=== PATIENT | male | born 1985 | race Two or more races ===

== ENCOUNTER 2018-03-17 20:39 | Emergency (ER) | payer OTHER ==
[~2018-03-17] VITALS: Ht 172.7 cm; Wt 140.6 kg
[2018-03-17 22:10] LABS: Basophils # (auto) 0.1 uL; Basophils % (auto) 0.9 % (0.0-2.0); Eosinophils # (auto) 0.4 uL; Eosinophils % (auto) 3.5 % (0.0-7.0); Hemoglobin 15.2 g/dL (13.5-17.5); Lymphocytes # (auto) 3.4 uL; Mean Corpuscular Hemoglobin 29.2 pg (28.0-32.0); Mean Corpuscular Hgb Conc. 33.7 g/dL (32.0-36.0); Mean Corpuscular Volume 86.8 fL (80.0-100.0); Monocytes # (auto) 0.7 uL; Monocytes % (auto) 6.2 % (0.0-12.0); Neutrophils # (auto) 7.1 uL; Neutrophils % (auto) 60.4 % (37.0-80.0); Nucleated Red Blood Cells % 0.1 %; Platelet Count (auto) 174 10^3/uL (140-450); Red Blood Cells 5.19 10^6/uL (4.5-5.90); Red Cell Distribution Width 14.3 % (11.8-14.3); White Blood Cell 11.7 10^3/uL (4.4-10.8)
[2018-03-17 22:28] LABS: INR 0.97 (0.9-1.15); Partial Thromboplastin Time 29.9 sec (23.78-33.04); Prothrombin Time 10.4 sec (9.27-12.13)
[2018-03-17 22:29] LABS: Alanine Aminotransferase 82 U/L (16-61); Albumin 3.3 g/dL (3.4-5.0); Anion Gap 10 (5-15); Aspartate Aminotransferase 38 U/L (15-37); BUN/Creatinine Ratio 14.7; Blood Urea Nitrogen 15 mg/dL (7-18); Calcium 8.6 mg/dL (8.5-10.1); Carbon Dioxide 25 mmol/L (21-32); Chloride 105 mmol/L (98-107); GFR African American 110 mL/min; GFR Non-African American 91 mL/min; Glucose 99 mg/dL (74-106); Magnesium 2.2 mg/dL (1.6-2.6); Potassium 4.1 mmol/L (3.5-5.1); Sodium 140 mmol/L (136-145)
[2018-03-17 22:34] LABS: Alkaline Phosphatase 114 U/L (45-117); Bilirubin, Total 0.3 mg/dL (0.2-1.0); Total Protein 8.1 g/dL (6.4-8.2)
[2018-03-18 02:30] VITALS: BP 121/68
== END 2018-03-18 03:08 | disposition home or self-care (01) ==
LOC: ER 20:47
DX: M79.605 Pain in left leg (principal)
CPT/HCPCS: 36415; 71046; 80053; 83735; 84484; 85025; 85379; 85610; 85730; 93005; 93971

== ENCOUNTER 2023-01-06 17:41 | Inpatient (IN) | payer OTHER, MEDICAID ==
[~2023-01-06] VITALS: Ht 175.3 cm; Wt 118.3 kg
[2023-01-06] MEDS ORDERED: HYDROcodone-ACET 10/325MG TAB PO ONE (18:30)
[2023-01-06] MEDS ORDERED: ONDANSETRON ODT 4 MG TAB PO ONE (18:30)
[2023-01-06 18:59] LABS: Basophils # (auto) 0 10 ^3/uL (0-0.2); Basophils % (auto) 0.4 % (0.0-2.0); Eosinophils # (auto) 0.2 10 ^3/uL (0-0.8); Eosinophils % (auto) 1.5 % (0.0-7.0); Hematocrit 46.4 % (41.0-53.0); Hemoglobin 15.9 g/dL (13.5-17.5); Lymphocytes # (auto) 2.1 10 ^3/uL (0.4-5.4); Lymphocytes % (auto) 19.6 % (10.0-50.0); Mean Corpuscular Hemoglobin 30.1 pg (28.0-32.0); Mean Corpuscular Hgb Conc. 34.2 g/dL (32.0-36.0); Mean Corpuscular Volume 88.1 fL (80.0-100.0); Monocytes # (auto) 0.5 10 ^3/uL (0-1.3); Monocytes % (auto) 4.3 % (0.0-12.0); Neutrophils % (auto) 74.2 % (37.0-80.0); Nucleated Red Blood Cells % 0.2 %; Red Blood Cells 5.27 10^6/uL (4.5-5.90); Red Cell Distribution Width 13.5 % (11.8-14.3); White Blood Cell 10.8 10^3/uL (4.4-10.8)
[2023-01-06 19:18] LABS: Albumin 3.4 g/dL (3.4-5.0); Calcium 8.5 mg/dL (8.5-10.1); Magnesium 1.9 mg/dL (1.6-2.6); Potassium 4.1 mmol/L (3.5-5.1)
[2023-01-06 19:20] LABS: Bilirubin, Total 0.3 mg/dL (0.2-1.0); Total Protein 8.1 g/dL (6.4-8.2)
[2023-01-06 22:20] LABS: Urine WBC None Seen /hpf (0 - 3)
[2023-01-06 22:41] LABS: Urine Bacteria FEW /hpf (None Seen); Urine Blood Negative /uL (Negative); Urine Mucus FEW (None Seen); Urine Specific Gravity 1.034 (1.001-1.035)
[2023-01-06] MEDS ORDERED: HYDROmorphone HCL 2 MG/ML VL/or syr IM ONE (23:30)
[2023-01-07] MEDS ORDERED: MORPHINE SULFATE INJ 2 MG/ml SYRG IV PRN ×2 (00:15→01:45)
[2023-01-07] MEDS ORDERED: IBUPROFEN 600 MG TAB PO PRN (00:15)
[2023-01-07] MEDS ORDERED: NITROGLYCERIN 0.4 MG SL TAB SL PRN ×2 (00:15→01:45)
[2023-01-07] MEDS: SODIUM CHLORIDE 0.9% 1,000 ML IV SCH ×2 (01:19→16:32)
[2023-01-07] MEDS: HYDROmorphone HCL 2 MG/ML VL/or syr IV PRN ×4 (03:37→21:09)
[2023-01-07 06:44] LABS: Albumin 3.6 g/dL (3.4-5.0); BUN/Creatinine Ratio 16.3 (10.0-20.0); Bilirubin, Total 0.5 mg/dL (0.2-1.0); Calcium 8.7 mg/dL (8.5-10.1); Potassium 3.8 mmol/L (3.5-5.1); Total Protein 7.8 g/dL (6.4-8.2)
[2023-01-07 07:02] LABS: Basophils # (auto) 0.1 10 ^3/uL (0-0.2); Basophils % (auto) 0.8 % (0.0-2.0); Eosinophils # (auto) 0.2 10 ^3/uL (0-0.8); Eosinophils % (auto) 2.1 % (0.0-7.0); Hematocrit 42.1 % (41.0-53.0); Hemoglobin 14.3 g/dL (13.5-17.5); Lymphocytes # (auto) 3.5 10 ^3/uL (0.4-5.4); Lymphocytes % (auto) 39.2 % (10.0-50.0); Mean Corpuscular Volume 88.4 fL (80.0-100.0); Monocytes # (auto) 0.5 10 ^3/uL (0-1.3); Monocytes % (auto) 5.7 % (0.0-12.0); Neutrophils # (auto) 4.6 10 ^3/uL (1.6-8.6); Neutrophils % (auto) 52.2 % (37.0-80.0); Nucleated Red Blood Cells % 0.1 %; Red Blood Cells 4.77 10^6/uL (4.5-5.90); Red Cell Distribution Width 13.5 % (11.8-14.3); White Blood Cell 8.9 10^3/uL (4.4-10.8)
[2023-01-07] MEDS: ONDANSETRON HCL 4 MG/2 ML VIAL IV PRN ×3 (09:31→21:09)
[2023-01-07 22:30] VITALS: BP 123/67
[2023-01-08] VITALS: BP 123/67
[2023-01-08 05:00] VITALS: BP 136/73
[2023-01-08] MEDS: HYDROmorphone HCL 2 MG/ML VL/or syr IV PRN ×3 (06:32→21:58)
[2023-01-08 06:42] LABS: Albumin 3.2 g/dL (3.4-5.0); Calcium 8.6 mg/dL (8.5-10.1)
[2023-01-08 06:45] LABS: BUN/Creatinine Ratio 13.3 (10.0-20.0)
[2023-01-08 06:46] LABS: Bilirubin, Total 0.7 mg/dL (0.2-1.0); Total Protein 7.5 g/dL (6.4-8.2)
[2023-01-08 06:50] LABS: Basophils # (auto) 0 10 ^3/uL (0-0.2); Basophils % (auto) 0.5 % (0.0-2.0); Eosinophils # (auto) 0.1 10 ^3/uL (0-0.8); Eosinophils % (auto) 1.7 % (0.0-7.0); Hemoglobin 15.1 g/dL (13.5-17.5); Lymphocytes # (auto) 2.7 10 ^3/uL (0.4-5.4); Lymphocytes % (auto) 31.5 % (10.0-50.0); Mean Corpuscular Hemoglobin 30.2 pg (28.0-32.0); Mean Corpuscular Hgb Conc. 34.3 g/dL (32.0-36.0); Mean Corpuscular Volume 88.2 fL (80.0-100.0); Monocytes # (auto) 0.5 10 ^3/uL (0-1.3); Monocytes % (auto) 6.1 % (0.0-12.0); Neutrophils # (auto) 5.2 10 ^3/uL (1.6-8.6); Neutrophils % (auto) 60.2 % (37.0-80.0); Nucleated Red Blood Cells % 0.3 %; Red Blood Cells 4.98 10^6/uL (4.5-5.90); Red Cell Distribution Width 13.4 % (11.8-14.3); White Blood Cell 8.6 10^3/uL (4.4-10.8)
[2023-01-08 08:00] VITALS: BP 126/77
[2023-01-08] MEDS: SODIUM CHLORIDE 0.9% 1,000 ML IV SCH (09:04)
[2023-01-08] MEDS: PANTOPRAZOLE 40 MG/10 ML VIAL INJ IV SCH (09:04)
[2023-01-08] MEDS: cefTRIAXone 1GM/50ML D5W 50 ML IV SCH (09:04)
[2023-01-08] MEDS: HYDROcodone-ACET 5/325MG TAB PO PRN ×2 (09:13→17:35)
[2023-01-08 12:00] VITALS: BP 107/65
[2023-01-08 16:00] VITALS: BP 113/75
[2023-01-08 22:00] VITALS: BP_SYST 111; BP_SYST 93; BP_DIAS 59; BP_DIAS 80
[2023-01-09] VITALS: BP 133/62
[2023-01-09] MEDS: HYDROmorphone HCL 2 MG/ML VL/or syr IV PRN ×2 (02:11→09:27)
[2023-01-09] MEDS: SODIUM CHLORIDE 0.9% 1,000 ML IV SCH (02:15)
[2023-01-09 05:00] VITALS: BP 113/76
[2023-01-09 09:00] VITALS: BP 118/71
[2023-01-09] MEDS: cefTRIAXone 1GM/50ML D5W 50 ML IV SCH (09:26)
[2023-01-09] MEDS: ONDANSETRON HCL 4 MG/2 ML VIAL IV PRN (09:26)
[2023-01-09] MEDS: PANTOPRAZOLE 40 MG/10 ML VIAL INJ IV SCH (09:26)
[2023-01-09] MEDS ORDERED: MET500T PO (12:18)
[2023-01-09] MEDS ORDERED: ZOFR4T PO (12:18)
[2023-01-09] MEDS ORDERED: CIPR-173 PO (12:18)
[2023-01-09] MEDS ORDERED: HYDR-4902 PO (12:18)
[2023-01-09 12:51] VITALS: BP 143/55
[2023-01-09 13:00] VITALS: BP 115/71
[2023-01-10 08:49] LABS: Hepatitis B Surface Antibody Negative (Negative)
[2023-01-10 09:20] LABS: Hepatitis A Total Antibody Positive (Negative)
[2023-01-10 09:48] LABS: Hepatitis C Antibody Negative (Negative)
== END 2023-01-09 13:25 | disposition home or self-care (01) | DRG 392 ==
LOC: ER 17:41 → UNDOADMIN 01-07 01:35 → OVERFLOW 01-07 01:35 → TELE-CENTR 01-07 21:52
PROVIDERS: ADMIT Nurse Practitioner Family; ATTEND Internal Medicine
DX: K57.92 Diverticulitis of intestine, part unspecified, without perforation or abscess without bleeding (principal); R00.1 Bradycardia, unspecified; R79.89 Other specified abnormal findings of blood chemistry; E66.01 Morbid (severe) obesity due to excess calories; K44.9 Diaphragmatic hernia without obstruction or gangrene; Z68.38 Body mass index [BMI] 38.0-38.9, adult
CPT/HCPCS: 36415; 74176; 76705; 80053; 81001; 82728; 83605; 83690; 83735; 84484; 85025; 86038; 86704; 86706; 86708; 86803; 87340; 96372; C9113; G0378; J0696; J2405

== ENCOUNTER 2023-01-17 08:21 | Emergency (ER) | payer OTHER, MEDICAID ==
[~2023-01-17] VITALS: Ht 175.3 cm; Wt 116.0 kg
[~2023-01-17 08:21] MED LIST: CIPR-173 PO; HYDR-4902 PO; MET500T PO; ZOFR4T PO
[2023-01-17] MEDS ORDERED: ONDANSETRON HCL 4 MG/2 ML VIAL IV ONE (08:45)
[2023-01-17] MEDS ORDERED: PANTOPRAZOLE 40 MG/10 ML VIAL INJ IV ONE (08:45)
[2023-01-17] MEDS ORDERED: SODIUM CHLORIDE 0.9% 1,000 ML IVB ONE (08:45)
[2023-01-17 08:58] LABS: Basophils # (auto) 0.1 10 ^3/uL (0-0.2); Basophils % (auto) 0.6 % (0.0-2.0); Eosinophils # (auto) 0.1 10 ^3/uL (0-0.8); Eosinophils % (auto) 1.4 % (0.0-7.0); Hematocrit 45.4 % (41.0-53.0); Hemoglobin 15.3 g/dL (13.5-17.5); Lymphocytes # (auto) 2.7 10 ^3/uL (0.4-5.4); Lymphocytes % (auto) 27.8 % (10.0-50.0); Mean Corpuscular Hemoglobin 29.9 pg (28.0-32.0); Mean Corpuscular Hgb Conc. 33.8 g/dL (32.0-36.0); Mean Corpuscular Volume 88.6 fL (80.0-100.0); Monocytes # (auto) 0.6 10 ^3/uL (0-1.3); Monocytes % (auto) 5.6 % (0.0-12.0); Neutrophils # (auto) 6.3 10 ^3/uL (1.6-8.6); Neutrophils % (auto) 64.6 % (37.0-80.0); Nucleated Red Blood Cells % 0.2 %; Red Blood Cells 5.12 10^6/uL (4.5-5.90); Red Cell Distribution Width 13.8 % (11.8-14.3); White Blood Cell 9.8 10^3/uL (4.4-10.8)
[2023-01-17 09:18] LABS: Albumin 3.4 g/dL (3.4-5.0); Calcium 8.7 mg/dL (8.5-10.1); Potassium 3.8 mmol/L (3.5-5.1)
[2023-01-17 09:22] LABS: BUN/Creatinine Ratio 12.9 (10.0-20.0); Bilirubin, Total 0.6 mg/dL (0.2-1.0); Total Protein 8.1 g/dL (6.4-8.2)
[2023-01-17 10:49] LABS: Urine Bacteria NONE SEEN /hpf (None Seen); Urine Blood Negative /uL (Negative); Urine Mucus FEW (None Seen); Urine Specific Gravity 1.029 (1.001-1.035); Urine WBC 1 /hpf (0 - 3)
[2023-01-17] MEDS ORDERED: METR375C PO (12:06)
[2023-01-17 12:57] VITALS: BP 114/75
== END 2023-01-17 13:58 | disposition home or self-care (01) ==
LOC: ER 08:21
DX: K52.9 Noninfective gastroenteritis and colitis, unspecified (principal); R10.30 Lower abdominal pain, unspecified; Z79.899 Other long term (current) drug therapy
CPT/HCPCS: 36415; 74176; 80053; 81001; 83690; 85025; 96361; 96374; 96375; 99285; C9113; J2405; J7030

== ENCOUNTER 2023-01-22 08:56 | Emergency (ER) | payer OTHER, MEDICAID ==
[~2023-01-22] VITALS: Ht 172.7 cm; Wt 117.8 kg
[2023-01-22 08:56] VITALS: BP 139/76
[~2023-01-22 08:56] MED LIST changes: +METR375C PO
[2023-01-22] MEDS ORDERED: KETOROLAC TROMETH 60MG/2ML VIAL IM ONE (10:30)
[2023-01-22] MEDS ORDERED: METH-1182 PO (10:33)
[2023-01-22] MEDS ORDERED: IBUP-1456 PO (10:33)
== END 2023-01-22 10:54 | disposition home or self-care (01) ==
LOC: ER 08:56
DX: S46.911A Strain of unspecified muscle, fascia and tendon at shoulder and upper arm level, right arm, initial encounter (principal); S29.011A Strain of muscle and tendon of front wall of thorax, initial encounter; Z79.1 Long term (current) use of non-steroidal anti-inflammatories (NSAID); Z79.2 Long term (current) use of antibiotics; Z79.899 Other long term (current) drug therapy; V43.52XA Car driver injured in collision with other type car in traffic accident, initial encounter; Y93.89 Activity, other specified; Y92.410 Unspecified street and highway as the place of occurrence of the external cause; Y99.8 Other external cause status
CPT/HCPCS: 71046; 73030; 96372; 99284; J1885

== ENCOUNTER 2023-02-09 01:51 | Emergency (ER) | payer OTHER, MEDICAID ==
[~2023-02-09] VITALS: Ht 177.8 cm; Wt 118.2 kg
[~2023-02-09 01:51] MED LIST changes: +IBUP-1456 PO; +METH-1182 PO
[2023-02-09 02:10] VITALS: BP 128/77; PULSE 62; RESP 18; TEMP 97.9; O2SAT 98
[2023-02-09] MEDS ORDERED: CYCL-837 PO (05:11)
[2023-02-09] MEDS ORDERED: TRAM50TA2 PO (05:11)
[2023-02-09] MEDS ORDERED: KETOROLAC TROMETH 60MG/2ML VIAL IM ONE (05:15)
[2023-02-10] MEDS ORDERED: ZOFR4T PO (10:24)
== END 2023-02-09 07:07 | disposition home or self-care (01) ==
LOC: ER 01:51
DX: S46.911A Strain of unspecified muscle, fascia and tendon at shoulder and upper arm level, right arm, initial encounter (principal); S23.41XA Sprain of ribs, initial encounter; Z79.1 Long term (current) use of non-steroidal anti-inflammatories (NSAID); Z79.899 Other long term (current) drug therapy; W01.198A Fall on same level from slipping, tripping and stumbling with subsequent striking against other object, initial encounter; Y93.89 Activity, other specified; Y92.89 Other specified places as the place of occurrence of the external cause; Y99.8 Other external cause status
CPT/HCPCS: 71045; 73030; 96372; 99284; J1885

== ENCOUNTER 2023-02-10 08:33 | Emergency (ER) | payer OTHER, MEDICAID ==
[~2023-02-10] VITALS: Ht 177.8 cm; Wt 115.8 kg
[~2023-02-10 08:33] MED LIST changes: +CYCL-837 PO; +TRAM50TA2 PO
[2023-02-10] MEDS ORDERED: SODIUM CHLORIDE 0.9% 1,000 ML IVB ONE (08:45)
[2023-02-10] MEDS ORDERED: MORPHINE SULFATE 4 MG/ML SYR/VIAL IV ONE (08:45)
[2023-02-10] MEDS ORDERED: PANTOPRAZOLE 40 MG/10 ML VIAL INJ IV ONE (08:45)
[2023-02-10] MEDS ORDERED: PROCHLORPERAZINE EDISYLATE 5 MG/ML 2ML VIAL IV ONE (08:45)
[2023-02-10 09:16] LABS: Basophils # (auto) 0 10 ^3/uL (0-0.2); Basophils % (auto) 0.5 % (0.0-2.0); Eosinophils # (auto) 0.1 10 ^3/uL (0-0.8); Eosinophils % (auto) 1.3 % (0.0-7.0); Hemoglobin 14.8 g/dL (13.5-17.5); Lymphocytes # (auto) 2.4 10 ^3/uL (0.4-5.4); Lymphocytes % (auto) 28.9 % (10.0-50.0); Mean Corpuscular Hgb Conc. 33.7 g/dL (32.0-36.0); Monocytes # (auto) 0.3 10 ^3/uL (0-1.3); Monocytes % (auto) 4.1 % (0.0-12.0); Neutrophils # (auto) 5.4 10 ^3/uL (1.6-8.6); Neutrophils % (auto) 65.2 % (37.0-80.0); Nucleated Red Blood Cells % 0.1 %; Red Blood Cells 4.94 10^6/uL (4.5-5.90); Red Cell Distribution Width 13.6 % (11.8-14.3); White Blood Cell 8.3 10^3/uL (4.4-10.8)
[2023-02-10 09:31] LABS: Albumin 3.4 g/dL (3.4-5.0); Calcium 8.6 mg/dL (8.5-10.1); Magnesium 2.5 mg/dL (1.6-2.6); Potassium 3.8 mmol/L (3.5-5.1)
[2023-02-10 09:34] LABS: BUN/Creatinine Ratio 17.5 (10.0-20.0); Bilirubin, Total 0.2 mg/dL (0.2-1.0); Total Protein 7.4 g/dL (6.4-8.2)
[2023-02-10] MEDS ORDERED: MORPHINE SULFATE 4 MG/ML SYR/VIAL IM ONE (09:45)
[2023-02-10] MEDS ORDERED: ZOFR4T PO (10:24)
[2023-02-10 10:39] VITALS: BP 144/89; PULSE 61; RESP 19; TEMP 98; O2SAT 99
[2023-02-10 10:43] LABS: Urine Bacteria NONE SEEN /hpf (None Seen); Urine Blood Negative /uL (Negative); Urine Mucus FEW (None Seen); Urine WBC 1 /hpf (0 - 3)
== END 2023-02-10 10:41 | disposition home or self-care (01) ==
LOC: ER 08:33
DX: R10.9 Unspecified abdominal pain (principal); R11.0 Nausea; Z79.1 Long term (current) use of non-steroidal anti-inflammatories (NSAID); Z79.899 Other long term (current) drug therapy
CPT/HCPCS: 36415; 74176; 80053; 81001; 83690; 83735; 85025; 96361; 96372; 96374; 96375; 99285; C9113; J0780; J2270; J7030

== ENCOUNTER 2023-02-19 23:52 | Inpatient (IN) | payer OTHER, MEDICAID ==
[~2023-02-19] VITALS: Ht 180.3 cm; Wt 116.7 kg
[2023-02-20] MEDS ORDERED: ONDANSETRON ODT 4 MG TAB PO ONE (00:30)
[2023-02-20] MEDS ORDERED: traMADol HCL 50 MG TAB PO ONE (00:30)
[2023-02-20 00:34] LABS: Basophils # (auto) 0 10 ^3/uL (0-0.2); Basophils % (auto) 0.2 % (0.0-2.0); Eosinophils # (auto) 0.1 10 ^3/uL (0-0.8); Eosinophils % (auto) 0.6 % (0.0-7.0); Hematocrit 46.1 % (41.0-53.0); Hemoglobin 15.3 g/dL (13.5-17.5); Lymphocytes # (auto) 0.9 10 ^3/uL (0.4-5.4); Mean Corpuscular Hemoglobin 29.9 pg (28.0-32.0); Mean Corpuscular Hgb Conc. 33.2 g/dL (32.0-36.0); Mean Corpuscular Volume 90.1 fL (80.0-100.0); Monocytes # (auto) 0.3 10 ^3/uL (0-1.3); Monocytes % (auto) 3.4 % (0.0-12.0); Neutrophils # (auto) 8.7 10 ^3/uL (1.6-8.6); Neutrophils % (auto) 86.8 % (37.0-80.0); Red Blood Cells 5.11 10^6/uL (4.5-5.90); Red Cell Distribution Width 14.3 % (11.8-14.3); White Blood Cell 10.1 10^3/uL (4.4-10.8)
[2023-02-20 00:47] LABS: Albumin 3.3 g/dL (3.4-5.0); Calcium 8.2 mg/dL (8.5-10.1); Potassium 3.7 mmol/L (3.5-5.1)
[2023-02-20 00:50] LABS: Total Protein 7.5 g/dL (6.4-8.2)
[2023-02-20 00:56] LABS: Bilirubin, Total 0.4 mg/dL (0.2-1.0)
[2023-02-20 01:10] LABS: BUN/Creatinine Ratio 12.5 (10.0-20.0)
[2023-02-20] MEDS ORDERED: SODIUM CHLORIDE 0.9% 1,000 ML IV ONE (02:00)
[2023-02-20 02:58] LABS: Urine Bacteria NONE SEEN /hpf (None Seen); Urine Mucus FEW (None Seen); Urine WBC 1 /hpf (0 - 3)
[2023-02-20 03:01] LABS: Urine Clarity CLEAR (Clear); Urine Color Yellow (Yellow); Urine Specific Gravity 1.025 (1.001-1.035)
[2023-02-20 03:02] LABS: Urine Blood Negative /uL (Negative); Urine Protein, UAD TRACE (Negative); Urine Urobilinogen Normal (Negative)
[2023-02-20 04:00] VITALS: PULSE 75; RESP 24; O2SAT 95
[2023-02-20] MEDS ORDERED: DOCUSATE SOD 100 MG CAP PO PRN (05:00)
[2023-02-20] MEDS ORDERED: IBUPROFEN 600 MG TAB PO PRN (05:00)
[2023-02-20] MEDS ORDERED: MORPHINE SULFATE INJ 2 MG/ml SYRG IV PRN ×2 (05:00→06:15)
[2023-02-20 05:29] LABS: Basophils # (auto) 0 10 ^3/uL (0-0.2); Basophils % (auto) 0.3 % (0.0-2.0); Eosinophils # (auto) 0.1 10 ^3/uL (0-0.8); Eosinophils % (auto) 0.6 % (0.0-7.0); Hematocrit 44.3 % (41.0-53.0); Hemoglobin 14.9 g/dL (13.5-17.5); Lymphocytes # (auto) 1.2 10 ^3/uL (0.4-5.4); Lymphocytes % (auto) 12.6 % (10.0-50.0); Mean Corpuscular Hemoglobin 30.2 pg (28.0-32.0); Mean Corpuscular Hgb Conc. 33.6 g/dL (32.0-36.0); Mean Corpuscular Volume 89.7 fL (80.0-100.0); Monocytes # (auto) 0.5 10 ^3/uL (0-1.3); Monocytes % (auto) 4.9 % (0.0-12.0); Neutrophils # (auto) 7.7 10 ^3/uL (1.6-8.6); Neutrophils % (auto) 81.6 % (37.0-80.0); Red Blood Cells 4.94 10^6/uL (4.5-5.90); Red Cell Distribution Width 14.4 % (11.8-14.3); White Blood Cell 9.4 10^3/uL (4.4-10.8)
[2023-02-20 05:48] LABS: Albumin 3.4 g/dL (3.4-5.0); Calcium 8.2 mg/dL (8.5-10.1); Potassium 3.6 mmol/L (3.5-5.1)
[2023-02-20 05:51] LABS: BUN/Creatinine Ratio 15.7 (10.0-20.0)
[2023-02-20 05:54] LABS: Bilirubin, Total 0.5 mg/dL (0.2-1.0); Total Protein 7.6 g/dL (6.4-8.2)
[2023-02-20] MEDS ORDERED: NITROGLYCERIN 0.4 MG SL TAB SL PRN (06:15)
[2023-02-20 08:00] VITALS: PULSE 70; RESP 25; O2SAT 95
[2023-02-20] MEDS: SODIUM CHLORIDE 0.9% 1,000 ML IV SCH ×2 (08:00→23:11)
[2023-02-20] MEDS: ONDANSETRON HCL 4 MG/2 ML VIAL IV PRN ×4 (08:38→22:45)
[2023-02-20 11:34] LABS: Cholesterol 178 mg/dL (< 200)
[2023-02-20 11:37] LABS: HDL Cholesterol 65 mg/dL (40-59); LDL Cholesterol 99 mg/dL (< 100); Triglycerides 98 mg/dL (< 150)
[2023-02-20] MEDS: HYDROcodone-ACET 5/325MG TAB PO PRN (12:03)
[2023-02-20] MEDS ORDERED: HYDROmorphone HCL 2 MG/ML VL/or syr IV PRN (12:45)
[2023-02-20] MEDS ORDERED: cefTRIAXone 1GM/50ML D5W 50 ML IV ONE (13:00)
[2023-02-20 13:26] LABS: Alcohol, Urine < 3.0 mg/dL (0-10); Amphetamine Screen, Urine NEGATIVE (NEGATIVE); Barbiturate Scree,Urine NEGATIVE (NEGATIVE); Benzodiazephine Screen, Urine NEGATIVE (NEGATIVE); Cannabinoid Screen, Urine POSITIVE (NEGATIVE); Cocaine Screen, Urine NEGATIVE (NEGATIVE)
[2023-02-20 13:33] LABS: Opiate Scree,Urine NEGATIVE (NEGATIVE); Phencyclidine Screen, Urine NEGATIVE (NEGATIVE)
[2023-02-20] MEDS: HYDROmorphone HCL 2 MG/ML VL/or syr IV PRN ×3 (13:45→22:44)
[2023-02-20] MEDS: metroNIDAZOLE 500MG/100ML 100 ML IV SCH ×2 (15:19→22:40)
[2023-02-20] MEDS: FLORASTOR (S. BOULARDII) 250 MG CAP PO SCH (23:08)
[2023-02-21 05:00] LABS: Basophils # (auto) 0 10 ^3/uL (0-0.2); Basophils % (auto) 0.4 % (0.0-2.0); Eosinophils # (auto) 0.1 10 ^3/uL (0-0.8); Eosinophils % (auto) 2.1 % (0.0-7.0); Hematocrit 45.2 % (41.0-53.0); Hemoglobin 15.1 g/dL (13.5-17.5); Lymphocytes # (auto) 1.5 10 ^3/uL (0.4-5.4); Lymphocytes % (auto) 23.3 % (10.0-50.0); Mean Corpuscular Hemoglobin 30.1 pg (28.0-32.0); Mean Corpuscular Hgb Conc. 33.3 g/dL (32.0-36.0); Mean Corpuscular Volume 90.5 fL (80.0-100.0); Monocytes # (auto) 0.6 10 ^3/uL (0-1.3); Monocytes % (auto) 9.5 % (0.0-12.0); Neutrophils # (auto) 4.3 10 ^3/uL (1.6-8.6); Neutrophils % (auto) 64.7 % (37.0-80.0); Nucleated Red Blood Cells % 0.1 %; Red Cell Distribution Width 14.2 % (11.8-14.3); White Blood Cell 6.6 10^3/uL (4.4-10.8)
[2023-02-21 05:17] LABS: Calcium 8.1 mg/dL (8.5-10.1); Potassium 4.2 mmol/L (3.5-5.1)
[2023-02-21 05:20] LABS: BUN/Creatinine Ratio 12.2 (10.0-20.0); Bilirubin, Total 0.5 mg/dL (0.2-1.0); Total Protein 7.1 g/dL (6.4-8.2)
[2023-02-21] MEDS: metroNIDAZOLE 500MG/100ML 100 ML IV SCH ×3 (06:15→21:59)
[2023-02-21] MEDS: ONDANSETRON HCL 4 MG/2 ML VIAL IV PRN ×4 (07:00→21:54)
[2023-02-21] MEDS: HYDROmorphone HCL 2 MG/ML VL/or syr IV PRN ×4 (07:00→21:55)
[2023-02-21 08:08] VITALS: RESP 15; O2SAT 97
[2023-02-21] MEDS: cefTRIAXone 1GM/50ML D5W 50 ML IV SCH (09:03)
[2023-02-21] MEDS: FLORASTOR (S. BOULARDII) 250 MG CAP PO SCH ×2 (10:01→21:55)
[2023-02-21 10:51] VITALS: PULSE 89; RESP 19; O2SAT 98
[2023-02-21] MEDS: SODIUM CHLORIDE 0.9% 1,000 ML IV SCH ×2 (11:24→22:02)
[2023-02-21 13:00] VITALS: BP 106/74; PULSE 89; RESP 19; TEMP 98.3; O2SAT 96
[2023-02-21 17:00] VITALS: BP 127/75; PULSE 60; RESP 19; TEMP 98.1; O2SAT 100
[2023-02-21 20:00] VITALS: PULSE 66; RESP 22; O2SAT 98
[2023-02-21 22:00] VITALS: BP 136/81; PULSE 66; RESP 22; TEMP 98.3; O2SAT 98
[2023-02-22] VITALS (7 sets, daily range): BP systolic 114–139; BP diastolic 65–78; PULSE 51–63; RESP 18–19; TEMP 97.7–98.4; O2SAT 98–99
[2023-02-22] MEDS: ONDANSETRON HCL 4 MG/2 ML VIAL IV PRN ×4 (02:46→21:47)
[2023-02-22] MEDS: metroNIDAZOLE 500MG/100ML 100 ML IV SCH ×3 (05:40→23:14)
[2023-02-22] MEDS: HYDROmorphone HCL 2 MG/ML VL/or syr IV PRN ×4 (05:45→21:47)
[2023-02-22 07:00] LABS: Albumin 3.1 g/dL (3.4-5.0); Calcium 8.4 mg/dL (8.5-10.1); Potassium 3.9 mmol/L (3.5-5.1)
[2023-02-22 07:06] LABS: BUN/Creatinine Ratio 11.2 (10.0-20.0); Bilirubin, Total 0.6 mg/dL (0.2-1.0); Total Protein 7.2 g/dL (6.4-8.2)
[2023-02-22] MEDS: cefTRIAXone 1GM/50ML D5W 50 ML IV SCH (09:44)
[2023-02-22] MEDS: FLORASTOR (S. BOULARDII) 250 MG CAP PO SCH ×2 (09:46→23:10)
[2023-02-22] MEDS: PANCREATIC ENZYMES 4200 UNIT CAP PO SCH (18:34)
[2023-02-22] MEDS: SODIUM CHLORIDE 0.9% 1,000 ML IV SCH (19:28)
[2023-02-23] VITALS (7 sets, daily range): BP systolic 115–126; BP diastolic 69–73; PULSE 52–66; RESP 17–22; TEMP 97.6–98.4; O2SAT 98–99
[2023-02-23] MEDS: HYDROmorphone HCL 2 MG/ML VL/or syr IV PRN ×4 (05:42→20:58)
[2023-02-23] MEDS: ONDANSETRON HCL 4 MG/2 ML VIAL IV PRN ×4 (05:43→20:57)
[2023-02-23] MEDS: metroNIDAZOLE 500MG/100ML 100 ML IV SCH ×3 (05:43→22:09)
[2023-02-23] MEDS: FLORASTOR (S. BOULARDII) 250 MG CAP PO SCH ×2 (09:02→22:07)
[2023-02-23] MEDS: PANCREATIC ENZYMES 4200 UNIT CAP PO SCH ×3 (09:02→18:51)
[2023-02-23] MEDS: cefTRIAXone 1GM/50ML D5W 50 ML IV SCH (09:02)
[2023-02-23] MEDS: SODIUM CHLORIDE 0.9% 1,000 ML IV SCH (17:54)
[2023-02-24 05:00] VITALS: BP 114/78; PULSE 50; RESP 16; TEMP 98.1; O2SAT 98
[2023-02-24] MEDS: metroNIDAZOLE 500MG/100ML 100 ML IV SCH ×3 (06:14→21:02)
[2023-02-24 06:53] LABS: Calcium 8.1 mg/dL (8.5-10.1); Potassium 3.5 mmol/L (3.5-5.1)
[2023-02-24 06:57] LABS: BUN/Creatinine Ratio 10.1 (10.0-20.0); Bilirubin, Total 0.5 mg/dL (0.2-1.0); Total Protein 6.9 g/dL (6.4-8.2)
[2023-02-24] MEDS: PANCREATIC ENZYMES 4200 UNIT CAP PO SCH ×3 (08:28→18:34)
[2023-02-24] MEDS: HYDROmorphone HCL 2 MG/ML VL/or syr IV PRN ×3 (08:29→18:46)
[2023-02-24] MEDS: cefTRIAXone 1GM/50ML D5W 50 ML IV SCH (08:31)
[2023-02-24] MEDS: ONDANSETRON HCL 4 MG/2 ML VIAL IV PRN ×4 (08:40→23:56)
[2023-02-24 08:58] VITALS: BP 126/74; PULSE 60; RESP 18; TEMP 97.5; O2SAT 98
[2023-02-24] MEDS: SODIUM CHLORIDE 0.9% 1,000 ML IV SCH ×2 (09:00→13:15)
[2023-02-24] MEDS: FLORASTOR (S. BOULARDII) 250 MG CAP PO SCH ×2 (09:45→21:02)
[2023-02-24 12:52] VITALS: BP 130/93; PULSE 53; RESP 20; TEMP 97.9; O2SAT 99
[2023-02-24] MEDS ORDERED: CLINIMIX PER PHARMACY 0 ML IV SCH (15:00)
[2023-02-24 15:32] LABS: Magnesium 2.3 mg/dL (1.6-2.6); Phosphorus 3.3 mg/dL (2.5-4.90)
[2023-02-24] MEDS: POTASSIUM CHL 20MEQ/100ML 100 ML IV SCH ×2 (16:19→18:35)
[2023-02-24 17:02] VITALS: BP 102/69; PULSE 59; RESP 20; TEMP 98.2; O2SAT 98
[2023-02-24 20:10] VITALS: BP 123/71; PULSE 63; RESP 18; TEMP 98.2
[2023-02-24] MEDS: AMINO ACID INFUSION IN D10W 1,000 ML IV NR (20:48)
[2023-02-24 22:00] VITALS: BP 123/71; PULSE 63; RESP 18; TEMP 98.2; O2SAT 98
[2023-02-25] MEDS ORDERED: DEXTROSE (50%) 50ML SYRG IV SCH
[2023-02-25] MEDS: HYDROmorphone HCL 2 MG/ML VL/or syr IV PRN ×2 (00:03→09:38)
[2023-02-25] MEDS: ACCU-CHEK COMFORT CURVE STRIP VI SCH ×4 (00:05→17:36)
[2023-02-25 05:00] VITALS: BP 111/71; PULSE 57; RESP 17; TEMP 97.6; O2SAT 98
[2023-02-25] MEDS: metroNIDAZOLE 500MG/100ML 100 ML IV SCH ×3 (06:00→21:58)
[2023-02-25] MEDS: InsuLIN REG 1unit/0.01ml Soln (100units/ml) SC SCH ×4 (06:00→17:36)
[2023-02-25 06:41] LABS: Potassium 3.4 mmol/L (3.5-5.1)
[2023-02-25 06:45] LABS: Calcium 8.1 mg/dL (8.5-10.1); Magnesium 2.2 mg/dL (1.6-2.6); Phosphorus 3.4 mg/dL (2.5-4.90)
[2023-02-25 08:47] VITALS: BP 117/62; PULSE 66; RESP 19; TEMP 97.8; O2SAT 94
[2023-02-25] MEDS: PANCREATIC ENZYMES 4200 UNIT CAP PO SCH ×3 (09:02→19:28)
[2023-02-25] MEDS: cefTRIAXone 1GM/50ML D5W 50 ML IV SCH (09:02)
[2023-02-25] MEDS: FLORASTOR (S. BOULARDII) 250 MG CAP PO SCH ×2 (09:02→21:58)
[2023-02-25] MEDS: ONDANSETRON HCL 4 MG/2 ML VIAL IV PRN (09:38)
[2023-02-25] MEDS: HYDROcodone-ACET 5/325MG TAB PO PRN ×2 (12:06→20:25)
[2023-02-25 12:43] VITALS: BP 132/79; PULSE 52; RESP 20; TEMP 97.9; O2SAT 97
[2023-02-25] MEDS ORDERED: POTASSIUM CHLORIDE 20 MEQ, LIDOCAINE 1% (LOCAL ANESTH.) 2 ML in SODIUM CHL 0.9% 100 ML IV ONE (13:30)
[2023-02-25] MEDS ORDERED: POTASSIUM EFFERVESENT TAB 25 MEQ PO ONE (14:45)
[2023-02-25 17:02] VITALS: BP 117/78; PULSE 56; RESP 18; TEMP 97.8; O2SAT 98
[2023-02-25 20:00] VITALS: PULSE 63; RESP 18
[2023-02-25] MEDS: AMINO ACID INFUSION IN D10W 1,000 ML IV NR (20:26)
[2023-02-25 22:00] VITALS: BP 107/68; PULSE 67; RESP 16; TEMP 98.5; O2SAT 97
[2023-02-26] MEDS: HYDROmorphone HCL 2 MG/ML VL/or syr IV PRN ×4 (00:06→22:05)
[2023-02-26] MEDS: ACCU-CHEK COMFORT CURVE STRIP VI SCH ×4 (00:10→17:40)
[2023-02-26] MEDS: metroNIDAZOLE 500MG/100ML 100 ML IV SCH ×3 (05:42→22:05)
[2023-02-26] MEDS: InsuLIN REG 1unit/0.01ml Soln (100units/ml) SC SCH ×4 (05:43→17:39)
[2023-02-26] MEDS: HYDROcodone-ACET 5/325MG TAB PO PRN (05:44)
[2023-02-26 06:58] LABS: Potassium 3.7 mmol/L (3.5-5.1)
[2023-02-26 07:04] LABS: Albumin 3.1 g/dL (3.4-5.0); BUN/Creatinine Ratio 16.7 (10.0-20.0); Calcium 8.4 mg/dL (8.5-10.1); Magnesium 2.3 mg/dL (1.6-2.6); Phosphorus 3.4 mg/dL (2.5-4.90)
[2023-02-26 08:00] VITALS: BP 129/90; PULSE 56; RESP 18; TEMP 98; O2SAT 100
[2023-02-26] MEDS: PANCREATIC ENZYMES 4200 UNIT CAP PO SCH ×3 (08:19→17:39)
[2023-02-26] MEDS: cefTRIAXone 1GM/50ML D5W 50 ML IV SCH (08:51)
[2023-02-26 09:00] VITALS: BP 129/90; PULSE 54; RESP 18; TEMP 98; O2SAT 100
[2023-02-26] MEDS: ONDANSETRON HCL 4 MG/2 ML VIAL IV PRN ×3 (09:27→22:04)
[2023-02-26] MEDS: FLORASTOR (S. BOULARDII) 250 MG CAP PO SCH ×2 (10:08→22:03)
[2023-02-26 13:00] VITALS: BP 112/73; PULSE 71; RESP 16; TEMP 98.1; O2SAT 99
[2023-02-26 17:00] VITALS: BP 103/77; PULSE 58; RESP 18; TEMP 97.8; O2SAT 99
[2023-02-26 20:00] VITALS: PULSE 63; RESP 18
[2023-02-26] MEDS ORDERED: AMINO ACID INFUSION IN D10W 1,000 ML IV NR (20:00)
[2023-02-26 21:45] VITALS: BP 105/64; PULSE 59; RESP 20; TEMP 98.1; O2SAT 99
[2023-02-27] MEDS: HYDROmorphone HCL 2 MG/ML VL/or syr IV PRN (04:01)
[2023-02-27] MEDS: ONDANSETRON HCL 4 MG/2 ML VIAL IV PRN (04:05)
[2023-02-27 05:00] VITALS: BP 107/67; PULSE 54; RESP 20; TEMP 97.4; O2SAT 97
[2023-02-27] MEDS: metroNIDAZOLE 500MG/100ML 100 ML IV SCH (05:38)
[2023-02-27 05:51] LABS: Potassium 3.5 mmol/L (3.5-5.1)
[2023-02-27 05:56] LABS: Albumin 3.2 g/dL (3.4-5.0); BUN/Creatinine Ratio 13.5 (10.0-20.0); Bilirubin, Total 0.5 mg/dL (0.2-1.0); Calcium 8.3 mg/dL (8.5-10.1); Magnesium 2.2 mg/dL (1.6-2.6); Phosphorus 3.4 mg/dL (2.5-4.90); Total Protein 7.4 g/dL (6.4-8.2)
[2023-02-27] MEDS: InsuLIN REG 1unit/0.01ml Soln (100units/ml) SC SCH ×3 (06:00→12:00)
[2023-02-27] MEDS: ACCU-CHEK COMFORT CURVE STRIP VI SCH ×3 (06:12→12:00)
[2023-02-27 08:00] VITALS: PULSE 78; RESP 18
[2023-02-27] MEDS: PANCREATIC ENZYMES 4200 UNIT CAP PO SCH ×2 (08:47→14:09)
[2023-02-27] MEDS: cefTRIAXone 1GM/50ML D5W 50 ML IV SCH (08:47)
[2023-02-27] MEDS: FLORASTOR (S. BOULARDII) 250 MG CAP PO SCH (08:47)
[2023-02-27] MEDS: HYDROcodone-ACET 5/325MG TAB PO PRN (08:56)
[2023-02-27 09:00] VITALS: BP 145/82; PULSE 78; RESP 20; TEMP 97.8; O2SAT 95
[2023-02-27 13:08] VITALS: TEMP 36.6
[2023-02-27] MEDS ORDERED: POTASSIUM CHL 20MEQ/100ML 100 ML IV ONE (14:15)
[2023-02-27] MEDS ORDERED: AMINO ACID INFUSION IN D10W 1,000 ML IV NR (20:00)
== END 2023-02-27 13:50 | disposition home or self-care (01) | DRG 440 ==
LOC: ER 23:52 → OVERFLOW 02-20 06:17 → WEST WING 02-21 10:35 → TELE-WESTW 02-24 19:31 → WEST WING 02-25 12:13
PROVIDERS: ADMIT Nurse Practitioner Family; ATTEND Internal Medicine
DX: K85.90 Acute pancreatitis without necrosis or infection, unspecified (principal); E66.01 Morbid (severe) obesity due to excess calories; Z68.35 Body mass index [BMI] 35.0-35.9, adult; Z83.3 Family history of diabetes mellitus; Z71.3 Dietary counseling and surveillance
CPT/HCPCS: 36415; 74176; 76705; 80053; 80061; 80069; 80307; 81001; 82962; 83036; 83690; 83735; 84100; 84443; 84484; 85025; 86301; 87081; G0378; J0696; J2001; J2405; J3480; J3490; Q0162

== ENCOUNTER 2023-04-17 13:31 | Emergency (ER) | payer MEDICAID, OTHER ==
[~2023-04-17] VITALS: Ht 177.8 cm; Wt 121.6 kg
[~2023-04-17 13:31] MED LIST changes: -CIPR-173 PO; -MET500T PO; -METR375C PO
[2023-04-17 14:30] LABS: Alanine Aminotransferase 34 U/L (7-40); Albumin 4.6 g/dL (3.2-4.8); Alkaline Phosphatase 113 U/L (46-116); Anion Gap 9 (5-15); Aspartate Aminotransferase 26 U/L (13-40); BUN/Creatinine Ratio 10.2 (10.0-20.0); Bilirubin, Total 0.7 mg/dL (0.2-1.0); Blood Urea Nitrogen 10 mg/dL (9-23); Calcium 9.3 mg/dL (8.5-10.1); Carbon Dioxide 24 mmol/L (20-30); Chloride 107 mmol/L (98-107); Glucose 90 mg/dL (74-106); Potassium 3.9 mmol/L (3.5-5.1); Sodium 140 mmol/L (136-145); Total Protein 8.2 g/dL (5.7-8.2)
[2023-04-17 14:47] LABS: Basophils # (auto) 0 10 ^3/uL (0-0.2); Basophils % (auto) 0.3 % (0.0-2.0); Eosinophils # (auto) 0.1 10 ^3/uL (0-0.8); Eosinophils % (auto) 0.6 % (0.0-7.0); Hematocrit 47.8 % (41.0-53.0); Hemoglobin 16.1 g/dL (13.5-17.5); Lymphocytes # (auto) 2.9 10 ^3/uL (0.4-5.4); Lymphocytes % (auto) 27.3 % (10.0-50.0); Mean Corpuscular Hemoglobin 29.9 pg (28.0-32.0); Mean Corpuscular Hgb Conc. 33.6 g/dL (32.0-36.0); Monocytes # (auto) 0.6 10 ^3/uL (0-1.3); Monocytes % (auto) 5.3 % (0.0-12.0); Neutrophils % (auto) 66.5 % (37.0-80.0); Red Blood Cells 5.37 10^6/uL (4.5-5.90); White Blood Cell 10.5 10^3/uL (4.4-10.8)
[2023-04-17 18:17] LABS: Urine Bacteria NONE SEEN /hpf (None Seen); Urine Blood Negative /uL (Negative); Urine Clarity Clear (Clear); Urine Color Yellow (Yellow); Urine Mucus FEW (None Seen); Urine Protein, UAD TRACE (Negative); Urine Specific Gravity 1.035 (1.001-1.035); Urine Urobilinogen Normal (Negative); Urine WBC 1 /hpf (0 - 3); Urine pH 5.5 (5.0-8.0)
[2023-04-17] MEDS ORDERED: SODIUM CHLORIDE 0.9% 1,000 ML IV ONE (19:30)
[2023-04-17] MEDS ORDERED: ONDANSETRON HCL 4 MG/2 ML VIAL IV ONE (19:30)
[2023-04-17] MEDS ORDERED: MORPHINE SULFATE 4 MG/ML SYR/VIAL IV ONE (19:30)
[2023-04-17 20:14] LABS: INR 1.12 (0.9-1.15); Partial Thromboplastin Time 33.3 SEC (24.5-34.5); Prothrombin Time 11.7 sec (9.3-11.8)
[2023-04-17] MEDS ORDERED: IOHEXOL 350 MG/ML 100ML IJ ONE (20:18)
[2023-04-17 23:36] VITALS: BP 125/66; PULSE 56; RESP 18; TEMP 97.7; O2SAT 99
== END 2023-04-17 23:37 | disposition home or self-care (01) ==
LOC: ER 13:31
DX: R10.10 Upper abdominal pain, unspecified (principal); R11.0 Nausea; R17 Unspecified jaundice; Z79.2 Long term (current) use of antibiotics; Z79.1 Long term (current) use of non-steroidal anti-inflammatories (NSAID); Z79.899 Other long term (current) drug therapy
CPT/HCPCS: 36415; 74177; 80053; 81001; 83605; 83690; 83735; 85025; 85610; 85730; 96361; 96374; 96375; 99285; J2270; J2405; J7030; Q9967

== ENCOUNTER 2023-04-19 19:42 | Emergency (ER) | payer MEDICAID ==
[~2023-04-19] VITALS: Ht 177.8 cm; Wt 121.8 kg
[2023-04-19 21:35] LABS: Basophils # (auto) 0.1 10 ^3/uL (0-0.2); Basophils % (auto) 0.6 % (0.0-2.0); Eosinophils # (auto) 0.1 10 ^3/uL (0-0.8); Eosinophils % (auto) 0.8 % (0.0-7.0); Hematocrit 46.4 % (41.0-53.0); Hemoglobin 15.4 g/dL (13.5-17.5); Lymphocytes # (auto) 3.4 10 ^3/uL (0.4-5.4); Lymphocytes % (auto) 27.3 % (10.0-50.0); Mean Corpuscular Hemoglobin 29.6 pg (28.0-32.0); Mean Corpuscular Hgb Conc. 33.1 g/dL (32.0-36.0); Mean Corpuscular Volume 89.2 fL (80.0-100.0); Monocytes # (auto) 0.8 10 ^3/uL (0-1.3); Monocytes % (auto) 6.4 % (0.0-12.0); Neutrophils # (auto) 8.2 10 ^3/uL (1.6-8.6); Neutrophils % (auto) 64.9 % (37.0-80.0); White Blood Cell 12.6 10^3/uL (4.4-10.8)
[2023-04-19 21:48] LABS: Alanine Aminotransferase 26 U/L (7-40); Albumin 4.7 g/dL (3.2-4.8); Alkaline Phosphatase 116 U/L (46-116); Anion Gap 9 (5-15); Aspartate Aminotransferase 20 U/L (13-40); BUN/Creatinine Ratio 8.8 (10.0-20.0); Blood Urea Nitrogen 10 mg/dL (9-23); Calcium 9.4 mg/dL (8.7-10.4); Carbon Dioxide 27 mmol/L (20-30); Chloride 106 mmol/L (98-107); Glucose 92 mg/dL (74-106); Lipase 48 U/L (12-53); Potassium 3.7 mmol/L (3.5-5.1); Sodium 142 mmol/L (136-145)
[2023-04-19 21:49] LABS: Bilirubin, Total 0.6 mg/dL (0.2-1.0); Total Protein 8.1 g/dL (5.7-8.2)
[2023-04-19 23:34] LABS: Urine Bacteria NONE SEEN /hpf (None Seen); Urine Blood Negative /uL (Negative); Urine Clarity Clear (Clear); Urine Color Yellow (Yellow); Urine Mucus FEW (None Seen); Urine Protein, UAD 1+ (Negative); Urine Specific Gravity 1.038 (1.001-1.035); Urine WBC 2 /hpf (0 - 3)
[2023-04-20] MEDS ORDERED: ONDANSETRON HCL 4 MG/2 ML VIAL IM ONE (00:15)
[2023-04-20] MEDS ORDERED: MORPHINE SULFATE 4 MG/ML SYR/VIAL IM ONE (00:15)
[2023-04-20] MEDS ORDERED: CIPR-173 PO (00:26)
[2023-04-20] MEDS ORDERED: ZOFR4T PO (00:26)
[2023-04-20] MEDS ORDERED: DICY20TA PO (00:26)
[2023-04-20] MEDS ORDERED: METR-344 PO (00:26)
[2023-04-20 00:39] VITALS: BP 135/79; PULSE 69; RESP 18; O2SAT 97
== END 2023-04-20 00:41 | disposition home or self-care (01) ==
LOC: ER 19:42
DX: K57.92 Diverticulitis of intestine, part unspecified, without perforation or abscess without bleeding (principal); Z79.899 Other long term (current) drug therapy
CPT/HCPCS: 36415; 80053; 81001; 83690; 85025; 96372; 99284; J2270; J2405

== ENCOUNTER 2023-04-24 11:12 | Emergency (ER) | payer MEDICAID ==
[~2023-04-24] VITALS: Ht 177.8 cm; Wt 118.7 kg
[~2023-04-24 11:12] MED LIST changes: +CIPR-173 PO; +DICY20TA PO; +METR-344 PO
[2023-04-24 13:12] LABS: Urine Bacteria NONE SEEN /hpf (None Seen); Urine Blood Negative /uL (Negative); Urine Clarity Clear (Clear); Urine Color Yellow (Yellow); Urine Mucus FEW (None Seen); Urine Protein, UAD TRACE (Negative); Urine Urobilinogen Normal (Negative); Urine WBC 1 /hpf (0 - 3); Urine pH 5.5 (5.0-8.0)
[2023-04-24 13:21] LABS: Basophils # (auto) 0 10 ^3/uL (0-0.2); Basophils % (auto) 0.5 % (0.0-2.0); Eosinophils # (auto) 0 10 ^3/uL (0-0.8); Eosinophils % (auto) 0.4 % (0.0-7.0); Hematocrit 46.5 % (41.0-53.0); Hemoglobin 15.7 g/dL (13.5-17.5); Lymphocytes % (auto) 24.8 % (10.0-50.0); Mean Corpuscular Hemoglobin 30.2 pg (28.0-32.0); Mean Corpuscular Hgb Conc. 33.9 g/dL (32.0-36.0); Mean Corpuscular Volume 89.1 fL (80.0-100.0); Monocytes # (auto) 0.4 10 ^3/uL (0-1.3); Neutrophils # (auto) 5.7 10 ^3/uL (1.6-8.6); Neutrophils % (auto) 69.3 % (37.0-80.0); Red Blood Cells 5.22 10^6/uL (4.5-5.90); White Blood Cell 8.2 10^3/uL (4.4-10.8)
[2023-04-24 13:48] LABS: Alanine Aminotransferase 19 U/L (7-40); Albumin 4.5 g/dL (3.2-4.8); Alkaline Phosphatase 122 U/L (46-116); Anion Gap 7 (5-15); Aspartate Aminotransferase 18 U/L (13-40); BUN/Creatinine Ratio 10.4 (10.0-20.0); Blood Urea Nitrogen 10 mg/dL (9-23); Carbon Dioxide 26 mmol/L (20-30); Chloride 107 mmol/L (98-107); Glucose 96 mg/dL (74-106); Lipase 93 U/L (12-53); Potassium 4.1 mmol/L (3.5-5.1); Sodium 140 mmol/L (136-145)
[2023-04-24 13:49] LABS: Bilirubin, Total 0.5 mg/dL (0.2-1.0); Total Protein 7.6 g/dL (5.7-8.2)
[2023-04-24 14:57] VITALS: BP 145/81; PULSE 66; RESP 18; TEMP 98.3; O2SAT 99
== END 2023-04-24 20:01 | disposition left against medical advice (07) ==
LOC: ER 11:12
DX: G89.29 Other chronic pain (principal); R10.32 Left lower quadrant pain; Z79.1 Long term (current) use of non-steroidal anti-inflammatories (NSAID); Z79.899 Other long term (current) drug therapy
CPT/HCPCS: 36415; 80053; 81001; 83690; 85025

== ENCOUNTER 2024-12-10 20:18 | Inpatient (IN) | payer MEDICAID ==
[~2024-12-10] VITALS: Ht 172.7 cm; Wt 97.6 kg
[2024-12-10] MEDS: SODIUM CHLORIDE 0.9% 2,000 ML IV ONE (20:30)
--- NOTE | 2024-12-10 20:40 | ED.PDOC ---
GI ASSESSMENT HPI Comments 39-year-old male presents with a chief complaint of abdominal pain with associated vomiting, nausea, and diarrhea. Patient reports that his pain is localized to his epigastric region, radiating to his back and lower abdomen, describes as cramping, and rates his pain a 10/10. Patient mentions that he was at [facility] last week and was diagnosed with "all the -itises: pancreatitis, colitis, and diverticulitis". Patient mentions that the medications they gave him did not help and he is back to get further treatment. Patient denies any blood in his emesis or stool. No other symptoms or modifying factors present at this time. Time Seen by MD: 20:28 Primary Care Provider: NONE Reviewed Notes: Medications, Allergies Allergies: Coded Allergies: NO KNOWN ALLERGIES (Unverified , 03/17/18) Home Meds Active Scripts Ondansetron Odt 4MG Tab (ZOFRAN PO) 4 Mg Tb, 4 MG PO TID PRN, #20 TAB ODT TAB-DISSOLVE IN MOUTH, THEN SWALLOW Prov:NAI GAVIN 04/20/23 Dicyclomine Hcl (Dicyclomine Hcl) 20 Mg Tab, 1 TAB PO TID PRN, #30 TAB 1 Refill Prov:NAI GAVIN 04/20/23 Ciprofloxacin Hcl (Cipro) 500 Mg Tab, 1 TAB PO BID for 10 Days, #20 TAB Prov:NAI GAVIN 04/20/23 Metronidazole (Flagyl) 500 Mg Tab, 1 TAB PO TID for 10 Days, #30 TAB Prov:NAI GAVIN 04/20/23 Cyclobenzaprine Hcl (Cyclobenzaprine Hcl) 5 Mg Tab, 1 TAB PO QPM PRN, #14 TAB 0 Refills Prov:MORIAH ENNIS 02/09/23 Tramadol Hcl (Tramadol Hcl) 50 Mg Tab, 50 MG PO QIDP, #10 TAB 0 Refills Prov:MORIAH ENNIS 02/09/23 Methocarbamol (Methocarbamol) 750 Mg Tab, 750 MG PO BID, #20 TAB Prov:DEANN HUA 01/22/23 Ibuprofen (Ibuprofen) 800 Mg Tab, 1 TAB PO TID, #30 TAB Prov:DEANN HUA 01/22/23 Hydrocodone-Acetaminophen (Hydrocodone Bitartrate/AC 5-325 mg) 1 Tab Tab, 1 TAB PO Q4HP PRN, #20 TAB Prov:BARB DE LEON MD 01/09/23 Ondansetron Odt 4MG Tab (ZOFRAN PO) 4 Mg Tb, 4 MG PO Q8HP PRN, #20 TAB ODT TAB-DISSOLVE IN MOUTH, THEN SWALLOW Prov:BARB DE LEON MD 01/09/23 Information Source: Patient Mode of Arrival: Ambulatory Timing: Days Duration: Since onset Prehospital treatment: None Quality: Cramping Vomitus: Food Particles Stool: Watery, Brown Severity: Moderate Recent: None Recent Hx of: None Pain Location: Epigastric Associated sign and symptoms: Nausea, Vomiting, Diarrhea, Abdominal Pain Past Medical History Past Medical History (Other): Pancreatitis, colitis, diverticulitis Surgical History: Denies all surgeries Family History Family History: Family hx of DM Social History Smoker: Non-Smoker Alcohol: Denies ETOH Use Drugs: Denies Drug Use Lives In: Home Constitutional: denies: chills, diaphoresis, fatigue, fever, malaise, sweats, weakness, others EENTM: denies: blurred vision, double vision, ear bleeding, ear discharge, ear drainage, ear pain, ear ringing, eye pain, eye redness, hearing loss, mouth pain, mouth swelling, nasal discharge, nose bleeding, nose congestion, nose pain, photophobia, tearing, throat pain, throat swelling, voice changes, others Respiratory: denies: cough, hemoptysis, orthopnea, SOB at rest, shortness of breath, SOB with excertion, stridor, wheezing, others Cardiovascular: denies: chest pain, dizzy spells, diaphoresis, Dyspnea on exertion, edema, irregular heart beat, left arm pain, lightheadedness, palpitations, PND, syncope, others Gastrointestinal: reports: abdominal pain, diarrhea, nausea, vomiting; denies: abdomen distended, blood streaked bowels, constipated, dysphagia, difficulty swallowing, hematemesis, melena, poor appetite, poor fluid intake, rectal bleeding, rectal pain, others Genitourinary: denies: burning, dysuria, flank pain, frequency, hematuria, incontinence, penile discharge, penile sore, pain, testicle pain, testicle swelling, urgency, others Neurological: denies: dizziness, fainting, headache, left sided numbness, left sided weakness, numbness, paresthesia, pre-existing deficit, right sided numbness, right sided weakness, seizure, speech problems, tingling, tremors, weakness, others Musculoskeletal: denies: back pain, gout, joint pain, joint swelling, muscle pain, muscle stiffness, neck pain, others Integumetry: denies: bruises, change in color, change in hair/nails, dryness, laceration, lesions, lumps, rash, wounds, others Allergic/Immunocompromised: denies: Difficulty Healing, Frequent Infections, Hives, Itching, others Hematologic/Lymphatic: denies: anemia, blood clots, easy bleeding, easy bruising, swollen glands, others Endocrine: denies: excessive hunger, excessive sweating, excessive thirst, excessive urination, flushing, intolerance to cold, intolerance to heat, unexplained weight gain, unexplained weight loss, others Psychiatric: denies: anxiety, bipolar disorder, depression, hopeless, panic disorder, schizophrenia, sleepless, suicidal, others All Other Systems: Reviewed and Negative Physical Exam General Appearance: Moderate Distress, Obese HEENT: Other (Pupils and face symmetric. Moist mucous membranes.) Neck: Full Range of Motion, Normal Inspection Respiratory: Lungs Clear, No Accessory Muscle Use, No Respiratory Distress, Normal Breath Sounds Cardiovascular: No Edema, No JVD, Regular Rate/Rhythm Breast Exam: Deferred Gastrointestinal: Diffuse, Tenderness, Other (Actively vomiting) Genitalia: Deferred Pelvic: Deferred Rectal: Deferred Extremities: Normal inspection, Normal range of motion, Non-tender, No pedal edema Neurologic: Alert (Oriented x4), Normal Affect, Normal Mood, Other (Ambulatory) Cerebellar Function: NOT DONE Reflexes: NOT DONE Skin: Dry, Normal Color, Warm Lymphatic: NOT DONE Was a procedure done? Was a procedure done?: No GI differential Dx Differential Diagnosis: Diverticular disease, Esophagitis, Gastritis/PUD, Gastroenteritis, Inflammatory BD, Pancreatitis, Dehydration, Electrolyte Imbalance, Food Poisoning, Bacterial, Viral, Hypovolemia, Ischemic Bowel, Stress Ulcer, Other (Colitis, among others) X-Ray, Labs, Meds, VS Vital Signs Date Time Temp Pulse Resp B/P (MAP) Pulse Ox O2 Delivery O2 Flow Rate FiO2 12/10/24 21:33 78 16 128/82 6/2/25 21:06 56 18 124/77 (93) 96 12/10/24 21:06 56 18 96 Room Air 12/10/24 20:18 98.4 63 17 153/95 (114) 95 98.4 Lab Test 12/10/24 20:51 Range/Units White Blood Count 9.5 4.4-10.8 10^3/uL Red Blood Count 5.32 4.5-5.90 10^6/uL Hemoglobin 15.8 13.5-17.5 g/dL Hematocrit 46.8 41.0-53.0 % Mean Corpuscular Volume 87.9 80.0-100.0 fL Mean Corpuscular Hemoglobin 29.7 28.0-32.0 pg Mean Corpuscular Hemoglobin Concent 33.7 32.0-36.0 g/dL Red Cell Distribution Width 14.3 11.8-14.3 % Platelet Count 153 140-450 10^3/uL Mean Platelet Volume 9.6 6.9-10.8 fL Neutrophils (%) (Auto) 58.0 37.0-80.0 % Lymphocytes (%) (Auto) 35.7 10.0-50.0 % Monocytes (%) (Auto) 5.0 0.0-12.0 % Eosinophils (%) (Auto) 0.8 0.0-7.0 % Basophils (%) (Auto) 0.5 0.0-2.0 % Neutrophils # (Auto) 5.5 1.6-8.6 10 ^3/uL Lymphocytes # (Auto) 3.4 0.4-5.4 10 ^3/uL Monocytes # (Auto) 0.5 0-1.3 10 ^3/uL Eosinophils # (Auto) 0.1 0-0.8 10 ^3/uL Basophils # (Auto) 0 0-0.2 10 ^3/uL Nucleated Red Blood Cells 0.3 % Sodium Level 142 136-145 mmol/L Potassium Level 3.6 3.5-5.1 mmol/L Chloride Level 111 H 98-107 mmol/L Carbon Dioxide Level 24 20-31 mmol/L Anion Gap 7 5-15 Blood Urea Nitrogen 10 9-23 mg/dL Creatinine 1.05 0.700-1.30 mg/dL Glomerular Filtration Rate Calc 94 >90 mL/min BUN/Creatinine Ratio 9.5 L 10.0-20.0 Serum Glucose 112 H 74-106 mg/dL Calcium Level 9.7 8.7-10.4 mg/dL Total Bilirubin 0.7 0.2-1.0 mg/dL Aspartate Amino Transferase (AST) 16 13-40 U/L Alanine Aminotransferase (ALT) 15 7-40 U/L Alkaline Phosphatase 99 46-116 U/L Total Protein 7.9 5.7-8.2 g/dL Albumin 4.5 3.2-4.8 g/dL Lipase 54 H 12-53 U/L Current Medications Medications (Trade) Dose Ordered Sig/Yissel Route Start Time Stop Time Status Last Admin Morphine Sulfate 4 mg ONCE ONCE IV 12/10/24 20:30 12/10/24 20:31 DC 12/10/24 21:33 Ondansetron HCl (Zofran) 4 mg ONCE ONCE IV 12/10/24 20:30 12/10/24 20:31 DC 12/10/24 21:33 Sodium Chloride 2,000 ml @ 1,000 mls/hr Q2H ONCE IV 12/10/24 20:30 12/10/24 22:29 DC 12/10/24 20:30 Pantoprazole Sodium (Protonix) 40 mg ONCE ONCE IV 12/10/24 20:30 12/10/24 20:31 DC 12/10/24 21:33 PROCEDURE(s): ABPL - CT AB PEL WO CON-NO ORAL OR IV REASON: upper and lower abd pain, n/v/d, poss pancreatitis/colitis ORDER NUMBER(s): [id number], ACCESSION NUMBER(s): [id number] Exam: CT CT AB PEL WO CON-NO ORAL OR IV History: upper and lower abd pain, n/v/d, poss pancreatitis/colitis Comparison Study: CT CT AB PEL WO CON-NO ORAL OR IV on DOS: 02/20/23, CT CT AB PEL WO CON-NO ORAL OR IV on DOS: 02/10/23, CT CT AB PEL WO CON-NO ORAL OR IV on DOS: 01/17/23 Technique: Multidetector spiral CT of the abdomen was performed from lung bases to pubic symphysis. Imaging was performed without IV contrast. Axial, coronal and sagittal multiplanar reformats were obtained from the axial data set by the technologist. Radiation Dose : 1. Abdomen/Pelvis: CTDIvol 24.28 mGy, DLP 1419.99 mGy*cm. Findings: Evaluation of solid organs is limited due to lack of intravenous contrast use. Lung Bases: No acute or significant lung base finding. Normal heart size. No pleural or pericardial effusion. Liver: The liver is normal in size. No focal lesions. Gallbladder and Biliary Tree: Unremarkable Spleen: Unremarkable Pancreas: The pancreas is grossly normal in appearance. Adrenal Glands: Unremarkable Kidneys: Kidneys are grossly normal without calculi or hydronephrosis. Bladder: Grossly unremarkable for degree of distention. Bowel: The stomach is grossly normal in appearance. Small bowel and colon are normal in caliber and distribution. Normal appendix is visualized in the right lower quadrant without findings of appendicitis. Ascites: Absent Lymphadenopathy: No mesenteric, retroperitoneal or periportal lymphadenopathy. Abdominal Wall and Mesentery: Moderate gynecomastia. Vasculature: The visualized abdominal aorta is normal in size and caliber. Evaluation of abdominal and pelvic vessels is limited due to lack of intravenous contrast. Pelvic Organs: Unremarkable Musculoskeletal: No aggressive focal bony lesions, acute fractures or dislocation. IMPRESSION: No acute abdominal or pelvic findings on this noncontrast evaluation. There is a short segment of sigmoid colon which is not well distended and is most likely due to peristalsis and less likely due to wall thickening. END IMPRESSION: X-Ray, Labs, Meds, VS Comment 39-year-old male with a history of pancreatitis, colitis and diverticular disease complaining of abdominal pain, nausea, vomiting and diarrhea Vitals remarkable for BP 143/95 Exam remarkable for diffuse abdominal tenderness greatest in the upper abdomen Rhythm strip independently interpreted by me: Sinus rhythm, rate 63, no ectopy. CT abdomen and pelvis IMPRESSION: No acute abdominal or pelvic findings on this noncontrast evaluation. There is a short segment of sigmoid colon which is not well distended and is most likely due to peristalsis and less likely due to wall thickening. CBC normal, CMP unremarkable, lipase 54, UA Patient treated with the following in the ED: 2 L 0.9 normal saline IV bolus, morphine 4 mg IV, Zofran 4 mg IV, Protonix 40 mg IV On re-evaluation, patient states pain has somewhat improved. Vitals were stable. Plan is to admit the patient for pain and emesis control and GI evaluation. Time of 1ST Reevaluation: 20:58 Reevaluation 1ST: Unchanged Time of 2ND Reevaluation: 22:00 Reevaluation 2ND: Improved Patient Education/Counseling: Diagnosis, Treatment, Need For Follow Up Family Education/Counseling: No Family Present Departure 1 Departure Time of Disposition: 23:30 Impression: Primary Impression: Acute on chronic pancreatitis Disposition: ADMITTED INPATIENT Admit to: Med Surg Condition: Guarded Critical Care Note Critical Care Time?: No Stability Stability form required: No Heart Score Heart Score: Heart Score Response (Comments) Value History N/A 0 EKG N/A 0 Age N/A 0 Risk Factors N/A 0 Troponin N/A 0 Total 0 I personally scribed for BRIDGET VELASQUEZ MD ([email or web address]) on 12/10/24 at 20:40. Electronically submitted by Ronnell Fulton ([email or web address]). BRIDGET VELASQUEZ MD Dec 10, 2024 20:40
[2024-12-10 21:09] LABS: Basophils # (auto) 0 10 ^3/uL (0-0.2); Basophils % (auto) 0.5 % (0.0-2.0); Eosinophils # (auto) 0.1 10 ^3/uL (0-0.8); Eosinophils % (auto) 0.8 % (0.0-7.0); Hematocrit 46.8 % (41.0-53.0); Hemoglobin 15.8 g/dL (13.5-17.5); Lymphocytes # (auto) 3.4 10 ^3/uL (0.4-5.4); Lymphocytes % (auto) 35.7 % (10.0-50.0); Mean Corpuscular Hemoglobin 29.7 pg (28.0-32.0); Mean Corpuscular Hgb Conc. 33.7 g/dL (32.0-36.0); Mean Corpuscular Volume 87.9 fL (80.0-100.0); Monocytes # (auto) 0.5 10 ^3/uL (0-1.3); Neutrophils # (auto) 5.5 10 ^3/uL (1.6-8.6); Nucleated Red Blood Cells % 0.3 %; Platelet Count (auto) 153 10^3/uL (140-450); Red Blood Cells 5.32 10^6/uL (4.5-5.90); Red Cell Distribution Width 14.3 % (11.8-14.3); White Blood Cell 9.5 10^3/uL (4.4-10.8)
[2024-12-10 21:18] LABS: Alanine Aminotransferase 15 U/L (7-40); Alkaline Phosphatase 99 U/L (46-116); Anion Gap 7 (5-15); Aspartate Aminotransferase 16 U/L (13-40); BUN/Creatinine Ratio 9.5 (10.0-20.0); Blood Urea Nitrogen 10 mg/dL (9-23); Calcium 9.7 mg/dL (8.7-10.4); Carbon Dioxide 24 mmol/L (20-31); Potassium 3.6 mmol/L (3.5-5.1); Sodium 142 mmol/L (136-145); Total Protein 7.9 g/dL (5.7-8.2)
[2024-12-10 21:19] LABS: Albumin 4.5 g/dL (3.2-4.8); Bilirubin, Total 0.7 mg/dL (0.2-1.0)
[2024-12-10] MEDS: ONDANSETRON HCL 4 MG/2 ML VIAL IV ONE (21:33)
[2024-12-10] MEDS: MORPHINE SULFATE 4 MG/ML SYR/VIAL IV ONE (21:33)
[2024-12-10] MEDS: PANTOPRAZOLE 40 MG/10 ML VIAL INJ IV ONE (21:33)
[2024-12-10 21:34] LABS: Chloride 111 mmol/L (98-107); Glucose 112 mg/dL (74-106)
[2024-12-10 21:49] LABS: Lipase 54 U/L (12-53)
--- NOTE | 2024-12-10 22:54 | DVHHP2 ---
History of Present Illness Reason for Visit: Acute abdominal pain History of Present Illness The patient is a 39-year-old male with past medical history of colitis, pancreatitis, and diverticulitis who presented to [facility] ED with complaint of abdominal pain. Patient reports he has been experiencing acute abdominal pain, localized in the epigastric area, radiating to his back, lower abdomen, described as cramping, rating 10/10 numeric scale, associated with nausea, vomiting, diarrhea, getting worse that prompted this visit. Patient was seen and evaluated in the ED, laboratory data shows WBC 9.5, platelets 153, sodium 142, potassium 3.6, BUN 10, creatinine 1.05, glucose 112, lipase 54, bl ood pressure 124/77, heart rate 78, temperature 98.4 F, O2 saturation 96% on room air. Abdomen/pelvis CT results pending. Patient was given IV morphine sulfate 4 mg x 1, IV Protonix, please see medication orders section in the computer. On my assessment, patient denied chest pain, no headache, no dizziness, no shortness of breath, no diarrhea, vomiting at this moment, no fever, no chills. Patient was admitted further evaluation and medical management. Past Medical History Pancreatitis, colitis, diverticulitis Past Surgical History Denies all surgeries Family History Reviewed, noncontributory to the management of this case. Past Social History The patient lives at home, denies smoking, alcohol or illicit drugs abuse. Review of Systems Constitutional: No: Fever, Chills, Sweats, Weakness, Malaise, Other Eyes: No: Pain, Vision change, Conjunctivae inflammation, Eyelid inflammation, Other, Redness ENT: No: Ear pain, Ear discharge, Nose pain, Nose discharge, Nose congestion, Mouth pain, Mouth swelling, Throat pain, Throat swelling, Other Respiratory: No: Cough, Dry, Shortness of breath, SOB with excertion, Wheezing, Hemoptysis, Pleuritic Pain, Sputum, Wheezing, Other Cardiovascular: No: Chest Pain, Palpitations, Orthopnea, Paroxysmal Noc. Dyspnea, Edema, Lt Headedness, Other Gastrointestinal: Nausea, Vomiting, Abdominal Pain, Diarrhea; No: Constipation, Melena, Hematochezia, Other Genitourinary: No Dysuria, No Frequency, No Incontinence, No Hematuria, No Rete ntion, No Other Musculoskeletal: back pain; No: other, neck pain, shoulder pain, arm pain, hand pain, leg pain, foot pain Skin: No: Rash, Lesions, Jaundice, Bruising, Other Neurological: No: Weakness, Numbness, Incoordination, Change in speech, Confusion, Seizures, Other Allergies: Coded Allergies: NO KNOWN ALLERGIES (Unverified , 03/17/18) Medications Current Medications Medications Dose Ordered Sig/Yissel Route Start Time Stop Time Status Last Admin Dose Admin Pantoprazole Sodium 40 mg DAILY IV 12/11/24 10:00 Sodium Chloride 10 ml Q8HR IV 12/11/24 06:00 UNV Acetaminophen/ Hydrocodone Bitart 1 tab Q4HP PRN PO 12/10/24 23:00 UNV Ondansetron HCl 4 mg Q4HP PRN IV 12/10/24 23:00 UNV Docusate Sodium 100 mg BIDPRN PRN PO 12/10/24 23:00 UNV Acetaminophen 650 mg Q6HP PRN PO 12/10/24 23:00 UNV Morphine Sulfate 2 mg Q4HPRN PRN IV 12/10/24 23:00 UNV Exam Vital Signs Vital Signs Date Time Temp Pulse Resp B/P (MAP) Pulse Ox O2 Delivery O2 Flow Rate FiO2 12/10/24 21:33 78 16 128/82 12/10/24 21:06 96 12/10/24 21:06 Room Air 12/10/24 20:18 98.4 98.4 General Appearance: Alert, Oriented X3, Cooperative, No acute distress HEENT: Atraumatic, PERRLA, EOMI, Mucous membr. moist/pink Respiratory: Clear to auscultation, Normal air movement Cardiovascular: Regular rate, Normal S1, Normal S2, No murmurs Abdominal: Normal bowel sounds, Soft, No hepatospenomegaly, No masses, Other (Reports tenderness) Extremities: No clubbing, No cyanosis, No edema, Normal pulses, No tenderness/swelling Skin: No rashes, No breakdown, No significant lesion Neuro: Normal gait, Normal speech, Strength at 5/5 X4 ext, Normal tone, Sensation intact, Cranial nerves 3-12 NL, Reflexes 2+ Psych/Mental Status: Mental status NL, Mood NL Labs/Xrays Labs Test 12/10/24 20:51 Range/Units White Blood Count 9.5 4.4-10.8 10^3/uL Red Blood Count 5.32 4.5-5.90 10^6/uL Hemoglobin 15.8 13.5-17.5 g/dL Hematocrit 46.8 41.0-53.0 % Mean Corpuscular Volume 87.9 80.0-100.0 fL Mean Corpuscular Hemoglobin 29.7 28.0-32.0 pg Mean Corpuscular Hemoglobin Concent 33.7 32.0-36.0 g/dL Red Cell Distribution Width 14.3 11.8-14.3 % Platelet Count 153 140-450 10^3/uL Mean Platelet Volume 9.6 6.9-10.8 fL Neutrophils (%) (Auto) 58.0 37.0-80.0 % Lymphocytes (%) (Auto) 35.7 10.0-50.0 % Monocytes (%) (Auto) 5.0 0.0-12.0 % Eosinophils (%) (Auto) 0.8 0.0-7.0 % Basophils (%) (Auto) 0.5 0.0-2.0 % Neutrophils # (Auto) 5.5 1.6-8.6 10 ^3/uL Lymphocytes # (Auto) 3.4 0.4-5.4 10 ^3/uL Monocytes # (Auto) 0.5 0-1.3 10 ^3/uL Eosinophils # (Auto) 0.1 0-0.8 10 ^3/uL Basophils # (Auto) 0 0-0.2 10 ^3/uL Nucleated Red Blood Cells 0.3 % Sodium Level 142 136-145 mmol/L Potassium Level 3.6 3.5-5.1 mmol/L Chloride Level 111 H 98-107 mmol/L Carbon Dioxide Level 24 20-31 mmol/L Anion Gap 7 5-15 Blood Urea Nitrogen 10 9-23 mg/dL Creatinine 1.05 0.700-1.30 mg/dL Glomerular Filtration Rate Calc 94 >90 mL/min BUN/Creatinine Ratio 9.5 L 10.0-20.0 Serum Glucose 112 H 74-106 mg/dL Calcium Level 9.7 8.7-10.4 mg/dL Total Bilirubin 0.7 0.2-1.0 mg/dL Aspartate Amino Transferase (AST) 16 13-40 U/L Alanine Aminotransferase (ALT) 15 7-40 U/L Alkaline Phosphatase 99 46-116 U/L Total Protein 7.9 5.7-8.2 g/dL Albumin 4.5 3.2-4.8 g/dL Lipase 54 H 12-53 U/L PATIENT: GEORGE ELIZABETH ACCT: [id number] UNIT: [id number] : 1985 LOC: OVERFLOW ROOM / BED: [address] [place] [address] / A AGE / SEX: 39 / M ADM STATUS: ADM IN SERVICE 31 ORDERING PHYSICIAN: BRIDGET VELASQUEZ MD PROCEDURE(s): ABPL - CT AB PEL WO CON-NO ORAL OR IV REASON: upper and lower abd pain, n/v/d, poss pancreatitis/colitis ORDER NUMBER(s): [id number], ACCESSION NUMBER(s): [id number] Exam: CT CT AB PEL WO CON-NO ORAL OR IV History: upper and lower abd pain, n/v/d, poss pancreatitis/colitis Comparison Study: CT CT AB PEL WO CON-NO ORAL OR IV on DOS: 02/20/23, CT CT AB PEL WO CON-NO ORAL OR IV on DOS: 02/10/23, CT CT AB PEL WO CON-NO ORAL OR IV on DOS: 01/17/23 Technique: Multidetector spiral CT of the abdomen was performed from lung bases to pubic symphysis. Imaging was performed without IV contrast. Axial, coronal and sagittal multiplanar reformats were obtained from the axial data set by the technologist. Radiation Dose: 1. Abdomen/Pelvis: CTDIvol 24.28 mGy, DLP 1419.99 mGy*cm. Findings: Evaluation of solid organs is limited due to lack of intravenous contrast use. Lung Bases: No acute or significant lung base finding. Normal heart size. No pleural or pericardial effusion. Liver: The liver is normal in size. No focal lesions. Gallbladder and Biliary Tree: Unremarkable Spleen: Unremarkable Pancreas: The pancreas is grossly normal in appearance. Adrenal Glands: Unremarkable Kidneys: Kidneys are grossly normal without calculi or hydronephrosis. Bladder: Grossly unremarkable for degree of distention. Bowel: The stomach is grossly normal in appearance. Small bowel and colon are normal in caliber and distribution. Normal appendix is visualized in the right lower quadrant without findings of appendicitis. Ascites: Absent Lymphadenopathy: No mesenteric, retroperitoneal or periportal lymphadenopathy. Abdominal Wall and Mesentery: Moderate gynecomastia. Vasculature: The visualized abdominal aorta is normal in size and caliber. Evaluation of abdominal and pelvic vessels is limited due to lack of intravenous contrast. Pelvic Organs: Unremarkable Musculoskeletal: No aggressive focal bony lesions, acute fractures or dislocation. IMPRESSION: No acute abdominal or pelvic findings on this noncontrast evaluation. There is a short segment of sigmoid colon which is not well distended and is most likely due to peristalsis and less likely due to wall thickening. Assessment/Plan Assessment/Plan Acute abdominal pain Intractable nausea and vomiting Plan 1. Admit to med surge unit 2. Breathing treatment 3. Pain control management 4. Management of fluids and electrolytes 5. Consultation for hospitalist 6. Diagnostic tests abdomen/pelvis CT 7. DVT prophylaxis on SCDs 8. Repeat labs CBC, CMP in a.m. 9. Continue with current medical management 10. Treatment plan discussed with patient and RN. Patient verbalized understanding. Plan discussed with: Patient, Other (RN) My Orders Orders - NEHAL BUSTAMANTE DNP Procedure Category Date Status Time Pantoprazole PHA 12/11/24 In Process (Protonix) 10:00 Allergies BALA 12/10/24 In Process 22:46 Code Status CODE 12/10/24 Transmitted 22:46 Sodium Chloride Lock PHA 12/11/24 Logged (Saline Lock Ns) 06:00 Oxygen Per Hour RT 12/10/24 Transmitted 22:46 Hydrocodone-Acet PHA 12/10/24 Logged 5/325mg Tab ([place] 23:00 Ondansetron Hcl PHA 12/10/24 Logged (Zofran) 23:00 Docusate Sodium PHA 12/10/24 Logged Capsule (Colace 23:00 Complete Blood Count LAB 12/11/24 Verified 04:00 Comprehensive LAB 12/11/24 Verified Metabolic Panel 04:00 Condition: Serious BALA 12/10/24 In Process 22:46 Acetaminophen Tablet PHA 12/10/24 Logged (Tylenol Tablet) 23:00 Clear Liq Diet DIET 12/11/24 Transmitted Breakfast Bedrest With Bathroom BALA 12/10/24 In Process Privileg 22:46 Morphine Sulfate PHA 12/10/24 Logged Injection 23:00 Sequential BALA 12/10/24 In Process Compression Device Hydromorphone PHA 12/10/24 Transmitted Injection (Dilaudid 23:00 Problem List: (1) Acute abdominal pain (2) Intractable nausea and vomiting Date of Service: Dec 10, 2024 Billing Provider: NEHAL BUSTAMANTE DNP Common Visit Codes: [id number] INP/OBS CARE (MOD) NEHAL BUSTAMANTE DNP Dec 10, 2024 22:54
[2024-12-10] MEDS ORDERED: NITROGLYCERIN 0.4 MG SL TAB SL PRN (23:00)
[2024-12-10] MEDS ORDERED: ACETAMINOPHEN 325 MG TAB PO PRN (23:00)
[2024-12-10] MEDS ORDERED: HYDROcodone-ACET 5/325MG TAB PO PRN (23:00)
[2024-12-10] MEDS ORDERED: MORPHINE SULFATE INJ 2 MG/ml SYRG IV PRN (23:00)
[2024-12-10] MEDS ORDERED: DOCUSATE SOD 100 MG CAP PO PRN (23:00)
[2024-12-10] MEDS: HYDROmorphone HCL 2 MG/ML VL/or syr IV ONE (23:23)
[2024-12-11] VITALS (7 sets, daily range): BP systolic 111–161; BP diastolic 66–98; PULSE 43–79; RESP 12–20; TEMP 97.7–98.1; O2SAT 95–99
--- NOTE | 2024-12-11 00:01 | DVH ---
Exam: CT CT AB PEL WO CON-NO ORAL OR IV History: upper and lower abd pain, n/v/d, poss pancreatitis/colitis Comparison Study: CT CT AB PEL WO CON-NO ORAL OR IV on DOS: 02/20/23, CT CT AB PEL WO CON-NO ORAL OR I V on DOS: 02/10/23, CT CT AB PEL WO CON-NO ORAL OR IV on DOS: 01/17/23 Technique: Multidetector spiral CT of the abdomen was performed from lung bases to pubic symphysis. I maging was performed without IV contrast. Axial, coronal and sagittal multiplanar reformats were obta ined from the axial data set by the technologist. Radiation Dose : 1. Abdomen/Pelvis: CTDIvol 24.28 mGy, DLP 1419.99 mGy*cm. Findings: Evaluation of solid organs is limited due to lack of intravenous contrast use. Lung Bases: No acute or significant lung base finding. Normal heart size. No pleural or pericardial effusion. Liver: The liver is normal in size. No focal lesions. Gallbladder and Biliary Tree: Unremarkable Spleen: Unremarkable Pancreas: The pancreas is grossly normal in appearance. Adrenal Glands: Unremarkable Kidneys: Kidneys are grossly normal without calculi or hydronephrosis. Bladder: Grossly unremarkable for degree of distention. Bowel: The stomach is grossly normal in appearance. Small bowel and colon are normal in caliber and d istribution. Normal appendix is visualized in the right lower quadrant without findings of appendicit is. Ascites: Absent Lymphadenopathy: No mesenteric, retroperitoneal or periportal lymphadenopathy. Abdominal Wall and Mesentery: Moderate gynecomastia. Vasculature: The visualized abdominal aorta is normal in size and caliber. Evaluation of abdominal a nd pelvic vessels is limited due to lack of intravenous contrast. Pelvic Organs: Unremarkable Musculoskeletal: No aggressive focal bony lesions, acute fractures or dislocation. IMPRESSION: No acute abdominal or pelvic findings on this noncontrast evaluation. There is a short segment of sig moid colon which is not well distended and is most likely due to peristalsis and less likely due to w all thickening. END IMPRESSION:
[2024-12-11] MEDS ORDERED: MORPHINE SULFATE INJ 2 MG/ml SYRG ONE (04:16)
[2024-12-11] MEDS: ONDANSETRON HCL 4 MG/2 ML VIAL IV PRN (04:21)
[2024-12-11] MEDS: MORPHINE SULFATE INJ 2 MG/ml SYRG IV PRN (04:21)
[2024-12-11] MEDS: SODIUM CHLOR 0.9% PF (SALINE LOCK) 10ML VIAL/SYR IV SCH (05:42)
[2024-12-11 08:10] LABS: Basophils # (auto) 0 10 ^3/uL (0-0.2); Basophils % (auto) 0.5 % (0.0-2.0); Eosinophils # (auto) 0.1 10 ^3/uL (0-0.8); Hematocrit 44.2 % (41.0-53.0); Hemoglobin 14.8 g/dL (13.5-17.5); Lymphocytes # (auto) 2.9 10 ^3/uL (0.4-5.4); Lymphocytes % (auto) 34.8 % (10.0-50.0); Mean Corpuscular Hemoglobin 29.5 pg (28.0-32.0); Mean Corpuscular Hgb Conc. 33.4 g/dL (32.0-36.0); Mean Corpuscular Volume 88.5 fL (80.0-100.0); Monocytes # (auto) 0.5 10 ^3/uL (0-1.3); Monocytes % (auto) 6.3 % (0.0-12.0); Neutrophils # (auto) 4.7 10 ^3/uL (1.6-8.6); Neutrophils % (auto) 57.4 % (37.0-80.0); Nucleated Red Blood Cells % 0.1 %; Platelet Count (auto) 143 10^3/uL (140-450); Red Cell Distribution Width 14.1 % (11.8-14.3); White Blood Cell 8.2 10^3/uL (4.4-10.8)
[2024-12-11 08:27] LABS: Alanine Aminotransferase 14 U/L (7-40); Alkaline Phosphatase 91 U/L (46-116); Anion Gap 7 (5-15); Aspartate Aminotransferase 15 U/L (13-40); BUN/Creatinine Ratio 10.6 (10.0-20.0); Blood Urea Nitrogen 10 mg/dL (9-23); Calcium 9.3 mg/dL (8.7-10.4); Carbon Dioxide 26 mmol/L (20-31); Potassium 4.1 mmol/L (3.5-5.1); Sodium 142 mmol/L (136-145); Total Protein 7.4 g/dL (5.7-8.2)
[2024-12-11 08:28] LABS: Albumin 4.3 g/dL (3.2-4.8); Bilirubin, Total 0.7 mg/dL (0.2-1.0)
[2024-12-11 08:32] LABS: Chloride 109 mmol/L (98-107)
[2024-12-11 08:51] LABS: Glucose 96 mg/dL (74-106)
[2024-12-11] MEDS: PANTOPRAZOLE 40 MG/10 ML VIAL INJ IV SCH (09:29)
[2024-12-11] MEDS ORDERED: MORPHINE SULFATE 4 MG/ML SYR/VIAL IV PRN (11:45)
[2024-12-11] MEDS ORDERED: MAALOX PLUS or MAALOX 30 ML PO PRN (11:45)
[2024-12-11] MEDS: MORPHINE SULFATE 4 MG/ML SYR/VIAL IV ONE (11:56)
--- NOTE | 2024-12-11 13:31 | DVHPN2 ---
Assessment/Plan Assessment/Plan Progress note 39 M with prior admission to OSH for same, admitted for interactable abdominal pain. Patient had symptoms for the past 4 months, lost to follow up due to insurance problem. Had prior scope in OSH with hiatal hernia and per patient was diagnosed with pancreatitis colitis and diverticulitis on last admission last week however was not taking any abx, acid suppressive meds or pain management. Physical exam AOx4 Obese PERLLA MMM Clear breath sounds S1 S2 RRR no murmur Diffusely tender abdomen, more focused on b/l subcostal and midback region No LE edema Labs EKG imaging reviewed Assessment and plan interactable abdominal pain, likely from dyspepsia hiatal hernia pancreatitis ruled out diverticulitis ruled out elevated bp likely from pain advance diet as tolerated pain management protonix, Maalox lifestyle changes bowel reg full code dvt ppx ambulatory diet clear liq Plan discussed with: Patient My Orders Orders - KIA HILL MD Procedure Category Date Status Time Morphine Sulfate PHA 12/11/24 In Process Injection 11:45 Pantoprazole Tablet PHA 12/11/24 In Process (Protonix Tablet) 17:00 Alum & Mag PHA 12/11/24 In Process Hydrox-Simethicone 11:45 Date of Service: Dec 11, 2024 Billing Provider: KIA HILL MD Common Visit Codes: [id number] INP/OBS CARE(HIGH) KIA HILL MD Dec 11, 2024 13:31
[2024-12-11] MEDS: MAALOX PLUS or MAALOX 30 ML PO SCH (14:23)
[2024-12-11] MEDS ORDERED: SENNA 8.6 MG TAB PO PRN (15:00)
[2024-12-11] MEDS: PANTOPRAZOLE 40 MG TAB PO SCH (18:08)
[2024-12-11] MEDS: MORPHINE SULFATE 4 MG/ML SYR/VIAL IV PRN (18:14)
[2024-12-12] VITALS (7 sets, daily range): BP systolic 104–141; BP diastolic 71–91; PULSE 47–60; RESP 18; TEMP 97.6–98.4; O2SAT 95–100
[2024-12-12] MEDS ORDERED: HYDROcodone-ACET 5/325MG TAB PO PRN (10:30)
--- NOTE | 2024-12-12 10:33 | DVHPN2 ---
Assessment/Plan Assessment/Plan Progress note 39 M with prior admission to OSH for same, admitted for interactable abdominal pain. Patient had symptoms for the past 4 months, lost to follow up due to insurance problem. Had prior scope in OSH with hiatal hernia and per patient was diagnosed with pancreatitis colitis and diverticulitis on last admission last week however was not taking any abx, acid suppressive meds or pain management. seen today during rounds. improved. escalating diet, deescalating pain. Physical exam AOx4 Obese PERLLA MMM Clear breath sounds S1 S2 RRR no murmur Diffusely tender abdomen, more focused on b/l subcostal and midback region No LE edema Labs EKG imaging reviewed Assessment and plan interactable abdominal pain, likely from dyspepsia hiatal hernia pancreatitis ruled out diverticulitis ruled out elevated bp likely from pain advance diet as tolerated pain management protonix, Maalox lifestyle changes bowel reg full code dvt ppx ambulatory diet regular diet Plan discussed with: Patient My Orders Orders - KIA HILL MD Procedure Category Date Status Time Pantoprazole Tablet PHA 12/11/24 In Process (Protonix Tablet) 17:00 Alum & Mag PHA 12/11/24 In Process Hydrox-Simethicone 13:45 Senna Pod Tablet PHA 12/11/24 In Process (Senokot Tablet) 15:00 Morphine Sulfate PHA 12/12/24 In Process Injection 15:00 Morphine Sulfate PHA 12/12/24 Transmitted Injection 10:30 Regular Diet DIET 12/12/24 Transmitted Lunch Hydrocodone-Acet PHA 12/12/24 Transmitted 5/325mg Tab (Pierz 10:30 Date of Service: Dec 12, 2024 Billing Provider: KIA HILL MD Common Visit Codes: [id number] INP/OBS CARE(HIGH) KIA HILL MD Dec 12, 2024 10:33
[2024-12-12] MEDS ORDERED: MORPHINE SULFATE 4 MG/ML SYR/VIAL IV PRN (15:00)
[2024-12-12] MEDS: MORPHINE SULFATE 4 MG/ML SYR/VIAL IV PRN (15:20)
[2024-12-13 01:00] VITALS: BP 128/84; PULSE 50; RESP 18; TEMP 97.3; O2SAT 97
[2024-12-13 05:00] VITALS: BP 133/91; PULSE 41; RESP 18; TEMP 97.3; O2SAT 98
[2024-12-13 09:00] VITALS: BP 168/103; PULSE 64; RESP 20; TEMP 97.9; O2SAT 99
--- NOTE | 2024-12-13 13:06 | DVHPN2 ---
Assessment/Plan Assessment/Plan Progress note 39 M with prior admission to OSH for same, admitted for interactable abdominal pain. Patient had symptoms for the past 4 months, lost to follow up due to insurance problem. Had prior scope in OSH with hiatal hernia and per patient was diagnosed with pancreatitis colitis and diverticulitis on last admission last week however was not taking any abx, acid suppressive meds or pain management. seen today during rounds. improved, further diet escalation, switching from IV to po pain meds. have constipation, giving bowel reg Physical exam AOx4 Obese PERLLA MMM Clear breath sounds S1 S2 RRR no murmur Diffusely tender abdomen, more focused on b/l subcostal and midback region No LE edema Labs EKG imaging reviewed Assessment and plan interactable abdominal pain, likely from dyspepsia hiatal hernia pancreatitis ruled out diverticulitis ruled out elevated bp likely from pain opioid induced constipation advance diet as tolerated pain management protonix, Maalox lifestyle changes bowel reg full code dvt ppx ambulatory diet regular diet Plan discussed with: Patient My Orders Orders - KIA HILL MD Procedure Category Date Status Time Mrsa Screen SUNITA 12/12/24 In Process 15:53 Morphine Oral Soln PHA 12/13/24 In Process 09:00 Senna Pod Tablet PHA 12/13/24 Verified (Senokot Tablet) 13:15 Polyethylene Glycol PHA 12/13/24 Verified 17g Powder (Miralax 13:15 Date of Service: Dec 13, 2024 Billing Provider: KIA HILL MD Common Visit Codes: [id number] INP/OBS CARE(HIGH) KIA HILL MD Dec 13, 2024 13:06
--- NOTE | 2024-12-13 13:30 | DVHDS2 ---
Discharge Summary Date of Admission Dec 10, 2024 at 22:53 Date of Discharge: Dec 13, 2024 Labs/Diagnostic Data: Laboratory Results Test 12/11/24 07:55 12/10/24 20:51 White Blood Count 8.2 10^3/uL (4.4-10.8) Red Blood Count 5.00 10^6/uL (4.5-5.90) Hemoglobin 14.8 g/dL (13.5-17.5) Hematocrit 44.2 % (41.0-53.0) Mean Corpuscular Volume 88.5 fL (80.0-100.0) Mean Corpuscular Hemoglobin 29.5 pg (28.0-32.0) Mean Corpuscular Hemoglobin Concent 33.4 g/dL (32.0-36.0) Red Cell Distribution Width 14.1 % (11.8-14.3) Platelet Count 143 10^3/uL (140-450) Mean Platelet Volume 9.3 fL (6.9-10.8) Neutrophils (%) (Auto) 57.4 % (37.0-80.0) Lymphocytes (%) (Auto) 34.8 % (10.0-50.0) Monocytes (%) (Auto) 6.3 % (0.0-12.0) Eosinophils (%) (Auto) 1.0 % (0.0-7.0) Basophils (%) (Auto) 0.5 % (0.0-2.0) Neutrophils # (Auto) 4.7 10 ^3/uL (1.6-8.6) Lymphocytes # (Auto) 2.9 10 ^3/uL (0.4-5.4) Monocytes # (Auto) 0.5 10 ^3/uL (0-1.3) Eosinophils # (Auto) 0.1 10 ^3/uL (0-0.8) Basophils # (Auto) 0 10 ^3/uL (0-0.2) Nucleated Red Blood Cells 0.1 % Sodium Level 142 mmol/L (136-145) Potassium Level 4.1 mmol/L (3.5-5.1) Chloride Level 109 mmol/L (98-107) Carbon Dioxide Level 26 mmol/L (20-31) Anion Gap 7 (5-15) Blood Urea Nitrogen 10 mg/dL (9-23) Creatinine 0.94 mg/dL (0.700-1.30) Glomerular Filtration Rate Calc 107 mL/min (>90) BUN/Creatinine Ratio 10.6 (10.0-20.0) Serum Glucose 96 mg/dL (74-106) Calcium Level 9.3 mg/dL (8.7-10.4) Total Bilirubin 0.7 mg/dL (0.2-1.0) Aspartate Amino Transferase (AST) 15 U/L (13-40) Alanine Aminotransferase (ALT) 14 U/L (7-40) Alkaline Phosphatase 91 U/L (46-116) Total Protein 7.4 g/dL (5.7-8.2) Albumin 4.3 g/dL (3.2-4.8) Lipase 54 U/L (12-53) Other Laboratory Tests 12/11/24 07:55 Brief Hx & Hospital Course: 39 M with prior admission to OSH for same, admitted for interactable abdominal pain. Patient had symptoms for the past 4 months, lost to follow up due to insurance problem. Had prior scope in OSH with hiatal hernia and per patient was diagnosed with pancreatitis colitis and diverticulitis on last admission last week however was not taking any abx, acid suppressive meds or pain management. Started on protonix and maalox. pain management with iv, followed by oral meds. escalated diet. started bowel reg. stable to dc home. follow up with dc clinic in 2 weeks. will need pcp and outpatient GI. Condition at Discharge: Good Final Diagnosis/Problems List interactable abdominal pain, likely from dyspepsia hiatal hernia pancreatitis ruled out diverticulitis ruled out elevated bp likely from pain opioid induced constipation Discharge Disposition: Home Discharge Statement: "Patient was advised to return to the ER or call 911 if any headaches, dizziness, shortness of breath, chest pain, abdominal pain, bleeding, fevers, or worsening of medical condition. Patient was counseled about treatment plan, medications, possible side effects, patientverbalized understanding. All questions were answered to the best of my ability. This discharge took greater then 30 minutes in planning, reviewing documentation, counseling the patient, and discussing with other team members." ASSESSMENT ASSESSMENT Assessment Date of Service: Dec 13, 2024 Billing Provider: KIA HILL MD Common Visit Codes: [id number] DISCH DAY >30min KIA HILL MD Dec 13, 2024 13:30
[2024-12-13] MEDS ORDERED: MAA30LQ GT (13:31)
[2024-12-13] MEDS ORDERED: PANT40TA2 PO (13:31)
[2024-12-13] MEDS ORDERED: MORP10SO PO (13:33)
[2024-12-13] MEDS ORDERED: POLY335015 PO (13:33)
[2024-12-13] MEDS: POLYETHYLENE GLYCOL 17 GM PWDR PO ONE (13:59)
[2024-12-13] MEDS: SENNA 8.6 MG TAB PO ONE (13:59)
[2024-12-13] MEDS: MORPHINE SULFATE 10 MG/5 ML ORAL SOLN PO PRN (14:34)
[2024-12-13 15:04] VITALS: BP 151/59; PULSE 61; RESP 18; TEMP 98; O2SAT 96
[2024-12-13 16:44] VITALS: BP 134/89; PULSE 57; RESP 18; TEMP 98.7; O2SAT 94
== END 2024-12-13 17:14 | disposition home or self-care (01) | DRG 251 ==
LOC: ER 20:19 → OVERFLOW 22:53 → WEST WING 12-11 20:55
PROVIDERS: ADMIT Student in an Organized Health Care Education/Training Program; ATTEND Student in an Organized Health Care Education/Training Program
DX: R10.13 Epigastric pain (principal); K44.9 Diaphragmatic hernia without obstruction or gangrene; K59.03 Drug induced constipation; T40.2X5A Adverse effect of other opioids, initial encounter; Z79.1 Long term (current) use of non-steroidal anti-inflammatories (NSAID); Z79.2 Long term (current) use of antibiotics; Z79.899 Other long term (current) drug therapy; Z83.3 Family history of diabetes mellitus; Y92.89 Other specified places as the place of occurrence of the external cause
CPT/HCPCS: 36415; 74176; 80053; 83690; 85025; 87081; 96361; 96374; 96375; G0378; J2405; J2470

== ENCOUNTER 2024-12-14 14:16 | Emergency (ER) | payer MEDICAID ==
[~2024-12-14] VITALS: Ht 177.8 cm; Wt 113.5 kg
[~2024-12-14 14:16] MED LIST changes: +MAA30LQ GT; +MORP10SO PO; +PANT40TA2 PO; +POLY335015 PO
[2024-12-14] MEDS: HYDROcodone-ACET 10/325MG TAB PO ONE (15:45)
--- NOTE | 2024-12-14 15:50 | ED.PDOC ---
Musculoskeletal HPI Comments This is a 39 year old male presenting to the ED with chief complaint of right knee pain. Patient reports that he had gotten up to go to work today, however, he had accidentally twisted his right knee, causing pain. Patient relays that he is now unable to extend or bend his knee due to the pain. Patient denies any leg swelling, numbness, weakness, tingling, fall, head injury, SOB, or chest pain. Chief Complaint: Lower Extremity Time Seen by MD: 15:48 Primary Care Provider: NONE Reviewed Notes: Nurses Notes, Medications, Allergies Allergies: Coded Allergies: NO KNOWN ALLERGIES (Unverified , 03/17/18) Home Meds Active Scripts Morphine Sulfate (Morphine Sulfate) 10 Mg/5 Ml [place], 10 MG PO BIDP PRN for 3 Days, #30 ML Prov:KIA HILL MD 12/13/24 Polyethylene Glycol 3350 (Miralax) 17 Gm Pow, 17 GM PO DAILY PRN for 10 Days, #10 POW Prov:KIA HILL MD 12/13/24 Alum & Mag Hydrox-Simethicone (Maalox Plus) 30 Ml Ss, 30 ML GT QID PRN for 90 Days, #1200 ML 3 Refills Prov:KIA HILL MD 12/13/24 Pantoprazole Sodium Sesquihydr (Protonix) 40 Mg Tab, 40 MG PO BID for 90 Days, #180 TAB 1 Refill Prov:KIA HILL MD 12/13/24 Ondansetron Odt 4MG Tab (ZOFRAN PO) 4 Mg Tb, 4 MG PO TID PRN, #20 TAB ODT TAB-DISSOLVE IN MOUTH, THEN SWALLOW Prov:NAI GAVIN 04/20/23 Dicyclomine Hcl (Dicyclomine Hcl) 20 Mg Tab, 1 TAB PO TID PRN, #30 TAB 1 Refill Prov:NAI GAVIN 04/20/23 Ciprofloxacin Hcl (Cipro) 500 Mg Tab, 1 TAB PO BID for 10 Days, #20 TAB Prov:NAI GAVIN 04/20/23 Metronidazole (Flagyl) 500 Mg Tab, 1 TAB PO TID for 10 Days, #30 TAB Prov:NAI GAVIN 04/20/23 Cyclobenzaprine Hcl (Cyclobenzaprine Hcl) 5 Mg Tab, 1 TAB PO QPM PRN, #14 TAB 0 Refills Prov:MORIAH ENNIS 02/09/23 Tramadol Hcl (Tramadol Hcl) 50 Mg Tab, 50 MG PO QIDP, #10 TAB 0 Refills Prov:MORIAH ENNIS 02/09/23 Methocarbamol (Methocarbamol) 750 Mg Tab, 750 MG PO BID, #20 TAB Prov:DEANN HUA 01/22/23 Ibuprofen (Ibuprofen) 800 Mg Tab, 1 TAB PO TID, #30 TAB Prov:DEANN HUA 01/22/23 Hydrocodone-Acetaminophen (Hydrocodone Bitartrate/AC 5-325 mg) 1 Tab Tab, 1 TAB PO Q4HP PRN, #20 TAB Prov:BARB DE LEON MD 01/09/23 Ondansetron Odt 4MG Tab (ZOFRAN PO) 4 Mg Tb, 4 MG PO Q8HP PRN, #20 TAB ODT TAB-DISSOLVE IN MOUTH, THEN SWALLOW Prov:BARB DE LEON MD 01/09/23 Information Source: Patient Mode of Arrival: EMS Location: Right Extremity Location: Knee Timing: Hours Prehospital treatment: None Severity: Moderate Able to Move Extremity: No Bear Weight: No Pain: Moderate Mechanism: Twisting Circumstances: Spontaneous Onset of Symptoms: Spontaneous Symptoms: Pain DVT Risk Factors: NONE Associated signs and symptoms: Knee pain Past Medical History Past Medical History (Other): Pancreatitis, Diverticulitis, Colitis Surgical History: Denies all surgeries Family History Family History: Family hx of DM Social History Smoker: Non-Smoker Alcohol: Denies ETOH Use Drugs: Denies Drug Use Lives In: Home Constitutional: denies: chills, diaphoresis, fatigue, fever, malaise, sweats, weakness, others EENTM: denies: blurred vision, double vision, ear bleeding, ear discharge, ear drainage, ear pain, ear ringing, eye pain, eye redness, hearing loss, mouth pain, mouth swelling, nasal discharge, nose bleeding, nose congestion, nose pain, photophobia, tearing, throat pain, throat swelling, voice changes, others Respiratory: denies: cough, hemoptysis, orthopnea, SOB at rest, shortness of breath, SOB with excertion, stridor, wheezing, others Cardiovascular: denies: chest pain, dizzy spells, diaphoresis, Dyspnea on exertion, edema, irregular heart beat, left arm pain, lightheadedness, palpitations, PND, syncope, others Gastrointestinal: denies: abdomen distended, abdominal pain, blood streaked bowels, constipated, diarrhea, dysphagia, difficulty swallowing, hematemesis, melena, nausea, poor appetite, poor fluid intake, rectal bleeding, rectal pain, vomiting, others Genitourinary: denies: burning, dysuria, flank pain, frequency, hematuria, incontinence, penile discharge, penile sore, pain, testicle pain, testicle swelling, urgency, others Neurological: denies: dizziness, fainting, headache, left sided numbness, left sided weakness, numbness, paresthesia, pre-existing deficit, right sided numbness, right sided weakness, seizure, speech problems, tingling, tremors, weakness, others Musculoskeletal: reports: others (Right knee pain); denies: back pain, gout, joint pain, joint swelling, muscle pain, muscle stiffness, neck pain Integumetry: denies: bruises, change in color, change in hair/nails, dryness, laceration, lesions, lumps, rash, wounds, others Allergic/Immunocompromised: denies: Difficulty Healing, Frequent Infections, Hives, Itching, others Hematologic/Lymphatic: denies: anemia, blood clots, easy bleeding, easy bruising, swollen glands, others Endocrine: denies: excessive hunger, excessive sweating, excessive thirst, excessive urination, flushing, intolerance to cold, intolerance to heat, unexplained weight gain, unexplained weight loss, others Psychiatric: denies: anxiety, bipolar disorder, depression, hopeless, panic disorder, schizophrenia, sleepless, suicidal, others All Other Systems: Reviewed and Negative Physical Exam General Appearance: Mild Distress HEENT: Normal ENT Inspection, Pharynx Normal, TMs Normal Neck: Full Range of Motion, Non-Tender, Normal, Normal Inspection Respiratory: Chest Non-Tender, Lungs Clear, No Accessory Muscle Use, No Respiratory Distress, Normal Breath Sounds Cardiovascular: No Edema, No JVD, No Murmur, No Gallop, Normal Peripheral Pulses, Regular Rate/Rhythm Breast Exam: Deferred Gastrointestinal: No Organomegaly, Non Tender, No Pulsatile Mass, Normal Bowel Sounds, Soft Genitalia: Deferred Pelvic: Deferred Rectal: Deferred Extremities: No calf tenderness, Normal capillary refill, No pedal edema Musculoskeletal : Location: Right Extremity Location: Knee Apperance: Limited ROM, Tenderness: Moderate Neurologic: Alert, turkey cleaner II-XII nml as Tested, No Motor Deficits, Normal Affect, Normal Mood, No Sensory Deficits Cerebellar Function: Normal Reflexes: Normal Skin: Dry, Normal Color, Warm Lymphatic: No Adenopathy Was a procedure done? Was a procedure done?: No Differential Diagnosis EXT Differential Diagnosis: Fracture, Sprain, Dislocation X-Ray, Labs, Meds, VS Vital Signs Date Time Temp Pulse Resp B/P (MAP) Pulse Ox O2 Delivery O2 Flow Rate FiO2 12/14/24 16:38 98 12/14/24 16:38 98.1 98 18 112/80 (91) 97 98.1 12/14/24 14:24 98.0 85 18 144/80 (101) 97 98.0 Current Medications Medications (Trade) Dose Ordered Sig/Yissel Route Start Time Stop Time Status Last Admin Acetaminophen/ Hydrocodone Bitart ([place] 10/325MG Tab) 1 tab ONCE ONCE PO 12/14/24 15:45 12/14/24 15:46 DC 12/14/24 15:45 Right knee XR indicates: No acute fracture. The patient was given [place] here in the emergency department's for the pain The patient was placed in a right knee immobilizer The patient was also placed on crutches and gait training The patient is being discharged at this time The patient will return to the emergency department's the condition worsens. Images Reviewed?: Images reviewed and evaluated by me Time of 1ST Reevaluation: 18:00 Reevaluation 1ST: Unchanged Patient Education/Counseling: Diagnosis, Treatment, Prognosis, Need For Follow Up Family Education/Counseling: No Family Present Additional Information Reviewed patient's previous visit(s): 12/10/24 for Pancreatitis The following tests were ordered, and results were reviewed by me: Right knee XR Additional information was gathered from interviewing the following independent historian: NONE I reviewed and agreed with the following test results read by other provider: Right knee XR I discussed treatments and results with medical personnel and: Patient Comprehensive systems review obtained and negative except for what is stated in the HPI. Departure 1 Departure Time of Disposition: 17:59 Impression: Primary Impression: Right knee sprain Qualified Codes: S83.91XA - Sprain of unspecified site of right knee, initial encounter Disposition: HOME / SELF CARE / HOMELESS Condition: Fair Discharged With: Self Critical Care Note Critical Care Time?: No Stability Stability form required: No Heart Score Heart Score: Heart Score Response (Comments) Value History N/A 0 EKG N/A 0 Age N/A 0 Risk Factors N/A 0 Troponin N/A 0 Total 0 I personally scribed for SHYANNE AVILES MD ([email or web address]) on 12/14/24 at 15:50. Electronically submitted by Anuj Farley ([email or web address]). I personally scribed for SHYANNE AVILES MD ([email or web address]) on 12/14/24 at 17:00. Electronically submitted by Anuj Farley ([email or web address]). SHYANNE AVILES MD Dec 14, 2024 15:50
--- NOTE | 2024-12-14 16:59 | DVH ---
EXAM: XR Right Knee, 3 Views CLINICAL INDICATION: trauma TECHNIQUE: Three views of the right knee. COMPARISON: None FINDINGS: BONES/JOINTS: Unremarkable. No acute fracture. No dislocation. SOFT TISSUES: Unremarkable. OTHER FINDINGS: . IMPRESSION: No acute fracture.
[2024-12-14 18:42] VITALS: BP 128/83; PULSE 80; RESP 17; TEMP 98.2; O2SAT 97
== END 2024-12-14 18:49 | disposition home or self-care (01) ==
LOC: ER 14:16 → EDBD 14:16 → ER 18:49
DX: S83.91XA Sprain of unspecified site of right knee, initial encounter (principal); Z79.899 Other long term (current) drug therapy; Z79.1 Long term (current) use of non-steroidal anti-inflammatories (NSAID); X50.1XXA Overexertion from prolonged static or awkward postures, initial encounter; Y93.89 Activity, other specified; Y92.89 Other specified places as the place of occurrence of the external cause; Y99.8 Other external cause status
CPT/HCPCS: 29505; 73562

== ENCOUNTER 2025-04-03 06:28 | Emergency (ER) | payer SELFPAY ==
[~2025-04-03] VITALS: Ht 175.3 cm; Wt 122.8 kg
[2025-04-03 06:33] VITALS: TEMP 97.3
--- NOTE | 2025-04-03 07:03 | ED.PDOC ---
GI ASSESSMENT HPI Comments A 39 YEAR OLD MALE PRESENTS TO THE ED WITH COMPLAINT OF ABDOMINAL PAIN. PATIENT REPORTS THAT HE HAS BEEN EXPERIENCING A RECENT EPISODE OF DIFFUSE ABDOMINAL PAIN WITH ASSOCIATED CONSTIPATION, MILD NAUSEA, AND VOMITING FOR THE PAST WEEK. PATIENT RELAYS THAT HE HAS HAD MULTIPLE EPISODES OF SIMILAR SYMPTOMS OVER THE PAST 2 YEARS, SEEING A GI SPECIALIST IN THE PAST TO HAVE AN ENDOSCOPY AND COLONOSCOPY WITH NO ABNORMAL FINDINGS NOTED. PATIENT DENIES FEVER, CHILLS, SHORTNESS OF BREATH, CHEST PAIN, HEADACHE, OR OTHER COMPLAINTS. NO OTHER SYMPTOMS OR MODIFYING FACTORS AT THIS TIME. PATIENT IS ALERT, ORIENTED X 4, AND HAS STEADY GAIT. Chief Complaint: Abdominal Pain Time Seen by MD: 06:50 Primary Care Provider: NONE Reviewed Notes: Nurses Notes, Medications, Allergies Allergies: Coded Allergies: NO KNOWN ALLERGIES (Unverified , 03/17/18) Home Meds Active Scripts Lactulose (Lactulose) 10 Gm/15 Ml [place], 30 ML PO TID PRN, #300 ML Prov:DEANN HUA 04/03/25 Morphine Sulfate (Morphine Sulfate) 10 Mg/5 Ml [place], 10 MG PO BIDP PRN for 3 Days, #30 ML Prov:KIA HILL MD 12/13/24 Polyethylene Glycol 3350 (Miralax) 17 Gm Pow, 17 GM PO DAILY PRN for 10 Days, #10 POW Prov:KIA HILL MD 12/13/24 Alum & Mag Hydrox-Simethicone (Maalox Plus) 30 Ml Ss, 30 ML GT QID PRN for 90 Days, #1200 ML 3 Refills Prov:KIA HILL MD 12/13/24 Pantoprazole Sodium Sesquihydr (Protonix) 40 Mg Tab, 40 MG PO BID for 90 Days, #180 TAB 1 Refill Prov:KIA HILL MD 12/13/24 Ondansetron Odt 4MG Tab (ZOFRAN PO) 4 Mg Tb, 4 MG PO TID PRN, #20 TAB ODT TAB-DISSOLVE IN MOUTH, THEN SWALLOW Prov:NAI GAVIN 04/20/23 Dicyclomine Hcl (Dicyclomine Hcl) 20 Mg Tab, 1 TAB PO TID PRN, #30 TAB 1 Refill Prov:NAI GAVIN 04/20/23 Ciprofloxacin Hcl (Cipro) 500 Mg Tab, 1 TAB PO BID for 10 Days, #20 TAB Prov:NAI GAVIN 04/20/23 Metronidazole (Flagyl) 500 Mg Tab, 1 TAB PO TID for 10 Days, #30 TAB Prov:NAI GAVIN 04/20/23 Cyclobenzaprine Hcl (Cyclobenzaprine Hcl) 5 Mg Tab, 1 TAB PO QPM PRN, #14 TAB 0 Refills Prov:MORIAH ENNIS 02/09/23 Tramadol Hcl (Tramadol Hcl) 50 Mg Tab, 50 MG PO QIDP, #10 TAB 0 Refills Prov:MORIAH ENNIS 02/09/23 Methocarbamol (Methocarbamol) 750 Mg Tab, 750 MG PO BID, #20 TAB Prov:DEANN HUA 01/22/23 Ibuprofen (Ibuprofen) 800 Mg Tab, 1 TAB PO TID, #30 TAB Prov:DEANN HUA 01/22/23 Hydrocodone-Acetaminophen (Hydrocodone Bitartrate/AC 5-325 mg) 1 Tab Tab, 1 TAB PO Q4HP PRN, #20 TAB Prov:BARB DE LEON MD 01/09/23 Ondansetron Odt 4MG Tab (ZOFRAN PO) 4 Mg Tb, 4 MG PO Q8HP PRN, #20 TAB ODT TAB-DISSOLVE IN MOUTH, THEN SWALLOW Prov:BARB DE LEON MD 01/09/23 Information Source: Patient Mode of Arrival: Ambulatory Timing: Days Duration: Since onset Prehospital treatment: None Quality: Aching, Cramping, Colicky Vomitus: None Stool: Impaction Severity: Moderate Recent: None Recent Hx of: None Pain Location: Diffuse Modifying Factors: Nothing Associated sign and symptoms: Nausea, Vomiting, Constipation, Abdominal Pain Past Medical History PAST MEDICAL HISTORY: Denies Surgical History: Denies all surgeries Family History Family History: Reviewed,noncontributory to illness, Family hx of DM Social History Smoker: Non-Smoker Alcohol: Denies ETOH Use Drugs: Denies Drug Use Lives In: Home Constitutional: denies: chills, diaphoresis, fatigue, fever, malaise, sweats, weakness, others EENTM: denies: blurred vision, double vision, ear bleeding, ear discharge, ear drainage, ear pain, ear ringing, eye pain, eye redness, hearing loss, mouth pain, mouth swelling, nasal discharge, nose bleeding, nose congestion, nose pain, photophobia, tearing, throat pain, throat swelling, voice changes, others Respiratory: denies: cough, hemoptysis, orthopnea, SOB at rest, shortness of breath, SOB with excertion, stridor, wheezing, others Cardiovascular: denies: chest pain, dizzy spells, diaphoresis, Dyspnea on exertion, edema, irregular heart beat, left arm pain, lightheadedness, palpitations, PND, syncope, others Gastrointestinal: reports: abdominal pain, nausea, vomiting; denies: abdomen distended, blood streaked bowels, constipated, diarrhea, dysphagia, difficulty swallowing, hematemesis, melena, poor appetite, poor fluid intake, rectal bleedi ng, rectal pain, others Genitourinary: denies: burning, dysuria, flank pain, frequency, hematuria, incontinence, penile discharge, penile sore, pain, testicle pain, testicle swelling, urgency, others Neurological: denies: dizziness, fainting, headache, left sided numbness, left sided weakness, numbness, paresthesia, pre-existing deficit, right sided numbness, right sided weakness, seizure, speech problems, tingling, tremors, weakness, others Musculoskeletal: denies: back pain, gout, joint pain, joint swelling, muscle pain, muscle stiffness, neck pain, others Integumetry: denies: bruises, change in color, change in hair/nails, dryness, laceration, lesions, lumps, rash, wounds, others Allergic/Immunocompromised: denies: Difficulty Healing, Frequent Infections, Hives, Itching, others Hematologic/Lymphatic: denies: anemia, blood clots, easy bleeding, easy bruising, swollen glands, others Endocrine: denies: excessive hunger, excessive sweating, excessive thirst, excessive urination, flushing, intolerance to cold, intolerance to heat, unexplained weight gain, unexplained weight loss, others Psychiatric: denies: anxiety, bipolar disorder, depression, hopeless, panic disorder, schizophrenia, sleepless, suicidal, others All Other Systems: Reviewed and Negative Physical Exam General Appearance: No Apparent Distress, Normal HEENT: Normal ENT Inspection, PERRL/EOMI, Pharynx Normal Neck: Full Range of Motion, Non-Tender, Normal, Normal Inspection Respiratory: Chest Non-Tender, Lungs Clear, No Accessory Muscle Use, No Respiratory Distress, Normal Breath Sounds Cardiovascular: No Edema, No JVD, No Murmur, No Gallop, Normal Peripheral Pulses, Regular Rate/Rhythm Breast Exam: Deferred Gastrointestinal: No Organomegaly, No Pulsatile Mass, Normal Bowel Sounds, Soft, Tenderness (GENERAL ABD, NO GUARDING AND REBOUND TENDERNESS. ) Genitalia: Deferred Pelvic: Deferred Rectal: Deferred Extremities: No calf tenderness, Normal capillary refill, Normal inspection, Normal range of motion, Non-tender, No pedal edema Musculoskeletal : Apperance: Normal Neurologic: Alert, spaghetti press helper II-XII nml as Tested, No Motor Deficits, Normal Affect, Normal Mood, No Sensory Deficits Cerebellar Function: Normal Reflexes: Normal Skin: Dry, Normal Color, Warm Peripheral Pulses: 2+ carotid (R), 2+ carotid (L) Lymphatic: No Adenopathy Was a procedure done? Was a procedure done?: No GI differential Dx Differential Diagnosis: Constipation, Gastritis/PUD, Gastroenteritis, Inflammatory BD, UTI, Urolithiasis X-Ray, Labs, Meds, VS Vital Signs Date Time Temp Pulse Resp B/P (MAP) Pulse Ox O2 Delivery O2 Flow Rate FiO2 04/03/25 06:33 97.3 71 20 134/80 97 97.3 Lab Test 04/03/25 07:22 04/03/25 06:58 Range/Units White Blood Count 8.7 4.4-10.8 10^3/uL Red Blood Count 4.96 4.5-5.90 10^6/uL Hemoglobin 14.8 13.5-17.5 g/dL Hematocrit 43.3 41.0-53.0 % Mean Corpuscular Volume 87.2 80.0-100.0 fL Mean Corpuscular Hemoglobin 29.9 28.0-32.0 pg Mean Corpuscular Hemoglobin Concent 34.3 32.0-36.0 g/dL Red Cell Distribution Width 13.5 11.8-14.3 % Platelet Count 143 140-450 10^3/uL Mean Platelet Volume 9.8 6.9-10.8 fL Neutrophils (%) (Auto) 66.3 37.0-80.0 % Lymphocytes (%) (Auto) 26.0 10.0-50.0 % Monocytes (%) (Auto) 6.0 0.0-12.0 % Eosinophils (%) (Auto) 1.3 0.0-7.0 % Basophils (%) (Auto) 0.4 0.0-2.0 % Neutrophils # (Auto) 5.8 1.6-8.6 10 ^3/uL Lymphocytes # (Auto) 2.3 0.4-5.4 10 ^3/uL Monocytes # (Auto) 0.5 0-1.3 10 ^3/uL Eosinophils # (Auto) 0.1 0-0.8 10 ^3/uL Basophils # (Auto) 0 0-0.2 10 ^3/uL Nucleated Red Blood Cells 0.1 % Sodium Level 141 136-145 mmol/L Potassium Level 4.0 3.5-5.1 mmol/L Chloride Level 109 H 98-107 mmol/L Carbon Dioxide Level 24 20-31 mmol/L Anion Gap 8 5-15 Blood Urea Nitrogen 9 9-23 mg/dL Creatinine 0.87 0.700-1.30 mg/dL Glomerular Filtration Rate Calc 114 >90 mL/min BUN/Creatinine Ratio 10.3 10.0-20.0 Serum Glucose 103 74-106 mg/dL Calcium Level 8.5 L 8.7-10.4 mg/dL Total Bilirubin 0.4 0.2-1.0 mg/dL Aspartate Amino Transferase (AST) 17 13-40 U/L Alanine Aminotransferase (ALT) 17 7-40 U/L Alkaline Phosphatase 107 46-116 U/L Total Protein 7.1 5.7-8.2 g/dL Albumin 4.0 3.2-4.8 g/dL Lipase Pending Urine Color Light-yellow Yellow Urine Clarity Clear Clear Urine pH 5.5 5.0-9.0 Urine Specific [place] 1.019 1.001-1.035 Urine Protein Negative Negative Urine Ketones Negative Negative Urine Blood Negative Negative /uL Urine Nitrite Negative Negative Urine Bilirubin Negative Negative Urine Urobilinogen Normal Negative mg/dL Urine Leukocyte Esterase Negative Negative /uL Urine RBC <1 0 - 3 /hpf Urine Microscopic WBC < 1 0-3 /HPF Urine Squamous Epithelial Cells Few <5 /hpf Urine Bacteria None seen None Seen /hpf Urine Mucus Few None Seen Urine Glucose Normal Normal mg/dL [facility] [id number] [facility] [id number] Ph: [phone] DIAGNOSTIC IMAGING Diagnostic Imaging Report : [id number] Signed PATIENT: GEORGE ELIZABETH ACCT: [id number] UNIT: [id number] : 1985 LOC: ER ROOM / BED: / AGE / SEX: 39 / M ADM STATUS: REG ER SERVICE [id number] ORDERING PHYSICIAN: DEANN HUA PROCEDURE(s): ABPL - CT AB PEL WO CON-NO ORAL OR IV REASON: GENERAL ABD PAIN WITH CONSTIPATION ORDER NUMBER(s): [id number], ACCESSION NUMBER(s): [id number] CLINICAL INFORMATION: Generalized abdominal pain. Constipation. TECHNIQUE: Axial CT images of the abdomen and pelvis were obtained without IV contrast. Coronal and sagittal reformatted images were obtained, reviewed, and stored. Evaluation of the parenchymal organs is limited without IV contrast. Evaluation of the bowel and mesentery is limited without oral contrast. All CT scans at this medical facility are performed using dose modulation techniques as appropriate to a performed exam including the following: Automated exposure control was utilized; adjustment of the MA and/or KV according to patient size; and use of iterative reconstruction technique. CTDIvol = 23.72 mGy DLP = 1483.07 mGy-cm COMPARISON: CT CT AB PEL WO CON-NO ORAL OR IV on DOS: 12/10/24, CT ABD/PEL on DOS: 12/02/24, CT ABD/PEL on DOS: 05/08/23 FINDINGS: Lung bases: Lung bases are clear. Small hiatal hernia. Liver: 2.2 cm low-density lesion in the lateral aspect of the right hepatic lobe, measures higher than simple fluid attenuation. Biliary: No calcified gallstones or biliary ductal dilatation. Spleen: Unremarkable. Pancreas: Grossly unremarkable in its noncontrast enhanced appearance. Adrenal glands: Unremarkable. No mass. Kidneys: No hydronephrosis. No renal or ureteral calculi. Aorta/Vascular: No aneurysm or significant calcification. Retroperitoneum: No mass or lymphadenopathy. Bowel/mesentery: Nonspecific nondilated fluid-filled small bowel loops. No small bowel obstruction. No free air or free fluid. Appendix is visualized and appears unremarkable. Scattered colonic diverticula without adjacent inflammatory changes to suggest diverticulitis. Pelvic organs: Grossly unremarkable. Bladder: Unremarkable. No mass. Abdominal wall: Very small fat containing umbilical hernia. Bones: No acute fracture or suspicious intraosseous lesion. IMPRESSION: 1. Nonspecific nondilated fluid-filled small bowel loops. Findings may be seen with ileus or enteritis in the appropriate clinical setting. No small bowel obstruction. 2. Scattered colonic diverticula without adjacent inflammatory changes to suggest diverticulitis. 3. Indeterminate liver lesion. MRI liver mass protocol could be obtained to further characterize. 4. Additional nonacute findings as detailed above. ATED BY: MOE TAMAYO DO DICTATED DATE/TIME: 04/03/25833 SIGNED BY: MOE TAMAYO DO SIGNED DATE/TIME: 04/03/25833 CC: X-Ray, Labs, Meds, VS Comment EXTERNAL MEDICAL RECORDS REVIEWED: [NONE] INDEPENDENT HISTORIANS: [NONE] SOCIAL DETERMINANTS OF HEALTH: [NONE] LABS ORDERED: CBC, CMP, UA, LIPASE REVIEWED AND INTERPRETED RESULTS: CT ABD/PEL IMAGING ORDERED: CT ABD/PEL TREATMENTS ORDERED: PT DECLINED PAIN MEDICATION PROCEDURES PERFORMED: NONE CRITICAL CARE TIME: NONE I HAVE DISCUSSED THE PATIENT WITH THE ATTENDING PHYSICIAN, DR. ELAINE, HE AGREES WITH THE PATIENT'S PLAN OF CARE AND DISPOSITION. BASED ON HISTORY OF PRESENT ILLNESS, AND PHYSICAL EXAM, PATIENT WILL BE DISCHARGED HOME. DISCUSSED PLAN FOR DISCHARGE HOME. RX: LACTULOSE 30ML. SHARED DECISION MAKING: DISCUSSED WITH PATIENT THAT THEIR WORKUP WAS NORMAL. PATIENT INSTRUCTED TO FOLLOW UP WITH PRIMARY CARE PROVIDER IN 1-2 DAYS FOR RE- EVALUATION OF SYMPTOMS. PATIENT VERBALIZES UNDERSTANDING TO RETURN TO ED FOR NEW OR WORSENING SYMPTOMS OR IF FOLLOW UP WITH PCP CANNOT BE OBTAINED. PATIENT FEELS COMFORTABLE GOING HOME AT THIS TIME. ALL QUESTIONS ADDRESSED AT TIME OF DISCHARGE. Images Reviewed?: Images reviewed and evaluated by me Time of 1ST Reevaluation: 09:01 Reevaluation 1ST: Improved Patient Education/Counseling: Diagnosis, Treatment, Need For Follow Up Family Education/Counseling: Diagnosis, Treatment, No Family Present Medical Screening: No EMC Exist At This Time SEPSIS Sepsis Screen Date sepsis recognized/suspect: Apr 03, 2025 Time Sepsis recognized/suspect: 0636 Recent Procedure: No On Antibiotic Therapy: No Respiratory Rate >20: No Heart Rate >90: No Temp<36 C (96.8 F) or >38.3 C: No SBP <90 or MAP <65 mmHG: No New Acute Mental Status Change: No Is the patient on CPAP, BIPAP,: No Physician Orders Comprehensive Metabolic Panel (04/03/25 06:59) Lipase (04/03/25 06:59) Ct Ab Pel Wo Con-No Oral Or Iv (04/03/25 06:59) Lactulose Oral (04/03/25 09:00) Vital Signs Date Time Temp Pulse Resp B/P (MAP) Pulse Ox O2 Delivery O2 Flow Rate FiO2 04/03/25 06:33 97.3 71 20 134/80 97 97.3 Laboratory Tests Test 04/03/25 07:22 White Blood Count 8.7 10^3/uL (4.4-10.8) Departure 1 Departure Time of Disposition: 09:01 Impression: Primary Impression: Constipation Qualified Codes: K59.00 - Constipation, unspecified Additional Impressions: Liver lesion Acute exacerbation of chronic abdominal pain Disposition: HOME / SELF CARE / HOMELESS Condition: Stable Additional Instructions: FOLLOW-UP WITH PCP IN 1 TO 2 DAYS. TAKE MEDICATIONS PRESCRIBED. RETURN TO ED FOR ANY NEW OR WORSENING SYMPTOMS. e-Prescriptions Lactulose (Lactulose) 10 Gm/15 Ml [place] 30 ML PO TID PRN, #300 ML Prov: DEANN HUA 04/03/25 Discharged With: Self Critical Care Note Critical Care Time?: No Stability Stability form required: No Heart Score Heart Score: Heart Score Response (Comments) Value History N/A 0 EKG N/A 0 Age N/A 0 Risk Factors N/A 0 Troponin N/A 0 Total 0 I personally scribed for DEANN HUA ([email or web address]) on 04/03/25 at 07:03. Electronically submitted by Anuj Farley ([email or web address]). I personally scribed for DEANN HUA ([email or web address]) on 04/03/25 at 07:05. Electronically submitted by Anuj Farley ([email or web address]). I personally scribed for DEANN HUA ([email or web address]) on 04/03/25 at 08:39. Electronically submitted by Anuj Farley ([email or web address]). I personally scribed for DEANN HUA ([email or web address]) on 04/03/25 at 08:54. Electronically submitted by Anuj Farley ([email or web address]). DEANN HUA Apr 03, 2025 07:03
[2025-04-03 07:42] LABS: Hematocrit 43.3 % (41.0-53.0); Hemoglobin 14.8 g/dL (13.5-17.5); Mean Corpuscular Hemoglobin 29.9 pg (28.0-32.0); Mean Corpuscular Volume 87.2 fL (80.0-100.0); Nucleated Red Blood Cells % 0.1 %
[2025-04-03 07:57] LABS: Alanine Aminotransferase 17 U/L (7-40); Albumin 4.0 g/dL (3.2-4.8); Alkaline Phosphatase 107 U/L (46-116); Anion Gap 8 (5-15); BUN/Creatinine Ratio 10.3 (10.0-20.0); Bilirubin, Total 0.4 mg/dL (0.2-1.0); Blood Urea Nitrogen 9 mg/dL (9-23); Carbon Dioxide 24 mmol/L (20-31); Glucose 103 mg/dL (74-106); Potassium 4.0 mmol/L (3.5-5.1); Sodium 141 mmol/L (136-145); Total Protein 7.1 g/dL (5.7-8.2)
[2025-04-03 08:02] LABS: Calcium 8.5 mg/dL (8.7-10.4); Chloride 109 mmol/L (98-107)
[2025-04-03 08:29] LABS: Urine Protein, UAD Negative (Negative)
--- NOTE | 2025-04-03 08:37 | DVH ---
CLINICAL INFORMATION: Generalized abdominal pain. Constipation. TECHNIQUE: Axial CT images of the abdomen and pelvis were obtained without IV contrast. Coronal and s agittal reformatted images were obtained, reviewed, and stored. Evaluation of the parenchymal organs is limited without IV contrast. Evaluation of the bowel and mesentery is limited without oral contras t. All CT scans at this medical facility are performed using dose modulation techniques as appropriat e to a performed exam including the following: Automated exposure control was utilized; adjustment of the MA and/or KV according to patient size; and use of iterative reconstruction technique. CTDIvol = 23.72 mGy DLP = 1483.07 mGy-cm COMPARISON: CT CT AB PEL WO CON-NO ORAL OR IV on DOS: 12/10/24, CT ABD/PEL on DOS: 12/02/24, CT ABD/PEL on DOS: 05/08/23 FINDINGS: Lung bases: Lung bases are clear. Small hiatal hernia. Liver: 2.2 cm low-density lesion in the lateral aspect of the right hepatic lobe, measures higher tomás n simple fluid attenuation. Biliary: No calcified gallstones or biliary ductal dilatation. Spleen: Unremarkable. Pancreas: Grossly unremarkable in its noncontrast enhanced appearance. Adrenal glands: Unremarkable. No mass. Kidneys: No hydronephrosis. No renal or ureteral calculi. Aorta/Vascular: No aneurysm or significant calcification. Retroperitoneum: No mass or lymphadenopathy. Bowel/mesentery: Nonspecific nondilated fluid-filled small bowel loops. No small bowel obstruction. N o free air or free fluid. Appendix is visualized and appears unremarkable. Scattered colonic diverti cula without adjacent inflammatory changes to suggest diverticulitis. Pelvic organs: Grossly unremarkable. Bladder: Unremarkable. No mass. Abdominal wall: Very small fat containing umbilical hernia. Bones: No acute fracture or suspicious intraosseous lesion. IMPRESSION: 1. Nonspecific nondilated fluid-filled small bowel loops. Findings may be seen with ileus or enteriti s in the appropriate clinical setting. No small bowel obstruction. 2. Scattered colonic diverticula without adjacent inflammatory changes to suggest diverticulitis. 3. Indeterminate liver lesion. MRI liver mass protocol could be obtained to further characterize. 4. Additional nonacute findings as detailed above.
[2025-04-03 09:00] VITALS: BP 150/89; PULSE 53; RESP 18; O2SAT 98
[2025-04-03] MEDS ORDERED: LACT10SO3 PO (09:00)
[2025-04-03] MEDS: LACTULOSE 20Gm/30ML SOLN PO ONE (09:03)
[2025-04-03 09:17] LABS: Lipase 152 U/L (12-53)
== END 2025-04-03 09:02 | disposition home or self-care (01) ==
LOC: ER 06:28
DX: K59.00 Constipation, unspecified (principal); K76.9 Liver disease, unspecified; Z79.1 Long term (current) use of non-steroidal anti-inflammatories (NSAID); Z79.899 Other long term (current) drug therapy
CPT/HCPCS: 36415; 74176; 80053; 81001; 83690; 85025